=== PATIENT | female | born 2000 | race American Indian/Alaskan Native ===

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

== ENCOUNTER 2023-01-26 09:54 | Emergency (ER) | payer OTHER ==
--- NOTE | 2023-01-26 10:05 | ED Physician Documentation ---
PD HPI URI - Stated complaint Stated Complaint: PIRES/COUGH/SNEEZING - History obtained from History obtained from: Patient - History of Present Illness Timing - onset: How many weeks ago (07 31/2) Timing duration: Weeks (had URI symptoms last week and some symptoms improving. Now with sinus pressure, frontal headache, congestion and starting feverish the past 5 days (since Monday this week).) Timing details: Gradual onset, Still present Associated symptoms: Chills, Nasal congestion, Sinus pain. No: Sore throat, Swollen nodes, Dry cough, Chest pain Contributing factors: No: Sick contact, Immunocompromised Improves by: No: Medication (tried flonase and Dayquil. 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 : None HEENT: None Psych: None Musculoskeletal: None Derm: None - Past Surgical History Past Surgical History: No - Present Medications Home Medications: Ambulatory Orders Medication Instructions Recorded Confirmed Nitrofurantoin [Macrobid] 100 mg PO BID #10 cap 10/05/21 Amoxicillin 500 mg PO TID #21 cap 01/26/23 HYDROcod/ACETAM 5/325 [[place] 5/325] 1 ea PO Q6H PRN #10 tablet 01/26/23 dexAMETHasone [Decadron] 4 mg PO DAILY #5 tablet 01/26/23 - Allergies Allergies/Adverse Reactions: Allergies Allergy/AdvReac Type Severity Reaction Status Date / Time No Known Drug Allergies Allergy Verified 11/28/21 03:07 - Social History Does the pt smoke?: Yes Smoking Status: Current every day smoker Does the pt drink ETOH?: No Does the pt have substance abuse?: No - Immunizations Immunizations are current?: Yes PD ED PE NORMAL - Vitals Vital signs reviewed: Yes - General General: Alert and oriented X 3, No acute distress, Well developed/nourished - HEENT HEENT: Ears normal, Pharynx benign - Neck Neck: Supple, no meningeal sign, No adenopathy - Cardiac Cardiac: RRR, No murmur - Respiratory Respiratory: Clear bilaterally - Derm Derm: Normal color, Warm and dry Results - Vitals Vitals: Vital Signs - 24 hr 01/26/23 01/26/23 10:03 10:37 Temperature 37.3 C Heart Rate 60 62 Respiratory 18 16 Rate Blood Pressure 97/59 L 99/60 O2 Saturation 100 98 Oxygen O2 Source Room air PD Medical Decision Making - ED course Complexity details: considered differential (URI symptoms a week and now with increasing sphenoid and frontal sinus symptoms. Likely secondary sinus infection now. ), d/w patient Departure - Departure Disposition: Home, Self Care Clinical Impression: Upper respiratory infection Qualifiers: URI type: unspecified URI Qualified Code(s): J06.9 - Acute upper respiratory infection, unspecified Acute sinusitis Qualifiers: Sinusitis location: unspecified location Recurrence: non-recurrent Qualified Code(s): J01.90 - Acute sinusitis, unspecified Condition: Stable Record reviewed to determine appropriate education?: Yes Instructions: ED Sinusitis Abx Tx Follow-Up: [facility] [Provider Group] Prescriptions: Amoxicillin 500 mg PO TID #21 cap dexAMETHasone [Decadron] 4 mg PO DAILY #5 tablet HYDROcod/ACETAM 5/325 [[place] 5/325] 1 ea PO Q6H PRN #10 tablet PRN Reason: Pain Comments: It sounds like your head cold/viral illness may have precipitated a sinus infection more localized. We can treat this with amoxicillin antibiotic 3 times daily for a week as well as Decadron steroid for inflammation daily for 5 days. Continue with Tylenol or ibuprofen as needed for pains. Consider some saline nasal spray a few times daily to help unclog in sinus openings. It is okay to continue with the Flonase if she would like. Add hydrocodone every 6-8 hours if needed for worse pain. This would be particularly at night when it is hurting more and trouble sleeping. Would be intended short-term as the above treatments should be helping it over the next few days. Off work today and possibly tomorrow see how you are feeling. I sent your prescriptions to [facility] pharmacy in [place]. My narcotic instructions I am prescribing a short course of narcotic pain medication for you. These are potentially dangerous and addictive medications that should be used carefully. These medications may constipate you. Take an dmtf-jzl-oqmjrwn stool softener such as docusate twice daily with plenty of water while taking these m edications. If you go 24 hours without a bowel movement, take pkda-shv-mpyuswy MiraLAX, per package instructions. Do not drink or drive while taking these medications. If you received narcotic or sedating medications while in the emergency department do not drive for 24 hours. Store this medication in a safe, secure place and out of reach of children. It is a violation of federal law to give or sell this medication to another person or to use in a manner other than prescribed. The ED will not refill narcotic prescriptions, including prescriptions lost or stolen. You can dispose of unwanted medications at the [facility]'s office or at several pharmacies such as [facility]. Forms: Activity restrictions Discharge Date/Time: 01/26/23 10:38
[2023-01-26 10:42] VITALS: BP 99/60
== END 2023-01-26 10:38 | disposition home or self-care (01) ==
LOC: ED 09:54
DX: J06.9 Acute upper respiratory infection, unspecified (principal); J01.90 Acute sinusitis, unspecified; F17.200 Nicotine dependence, unspecified, uncomplicated
CPT/HCPCS: 99281; 99283

== ENCOUNTER 2023-02-06 09:00 | Emergency (ER) | payer OTHER ==
[2023-02-06 09:37] VITALS: BP 114/64
[2023-02-06 10:53] LABS: B. PARAPERTUSSIS- RESP PCR PAN NOT DETECTED; B. PERTUSSIS- RESP PCR PANEL NOT DETECTED; C. PNEUMONIAE- RESP PCR PANEL NOT DETECTED; CORONAVIRUS 229E-RESP PCR NOT DETECTED; CORONAVIRUS HKU1-RESP PCR NOT DETECTED; CORONAVIRUS NL63-RESP PCR NOT DETECTED; CORONAVIRUS OC43-RESP PCR NOT DETECTED; HUMAN METAPNEUMOVIRUS NOT DETECTED; INFLUENZA A- RESP PCR PANEL NOT DETECTED; INFLUENZA B - RESP PCR PANEL NOT DETECTED; M. PNEUMONIAE- RESP PCR PANEL NOT DETECTED; PARAINFLUENZA VIRUS 1 NOT DETECTED; PARAINFLUENZA VIRUS 2 NOT DETECTED; PARAINFLUENZA VIRUS 3 NOT DETECTED; PARAINFLUENZA VIRUS 4 NOT DETECTED; RHINOVIRUS/ENTEROVIRUS NOT DETECTED; RSV- RESP PCR PANEL NOT DETECTED; SARS-CoV-2 -RESP PCR PANEL NOT DETECTED
--- NOTE | 2023-02-06 11:03 | ED Physician Documentation ---
PD HPI HEENT - Stated complaint Stated Complaint: THROAT PX/COUGH/CONGESTION - Chief complaint Chief Complaint: Heent - History obtained from History obtained from: Patient - Additional information Additional information: The patient comes to the emergency department chief complaint of sore throat, nasal congestion, chills, sweats, and cough This started last night. She states she had something similar couple weeks ago and was told she had sinusitis and placed on antibiotics in the form of amoxicillin. The patient denies any fevers. She states she does not have any underlying medical problems and is otherwise healthy. No specific sick contacts. 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 She is wondering what the fastest way to get better would be. 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 : None HEENT: None Psych: None Musculoskeletal: None Derm: None - Past Surgical History Past Surgical History: No - Present Medications Home Medications: Ambulatory Orders Medication Instructions Recorded Confirmed Nitrofurantoin [Macrobid] 100 mg PO BID #10 cap 10/05/21 Amoxicillin 500 mg PO TID #21 cap 01/26/23 HYDROcod/ACETAM 5/325 [[place] 5/325] 1 ea PO Q6H PRN #10 tablet 01/26/23 dexAMETHasone [Decadron] 4 mg PO DAILY #5 tablet 01/26/23 - Allergies Allergies/Adverse Reactions: Allergies Allergy/AdvReac Type Severity Reaction Status Date / Time No Known Drug Allergies Allergy Verified 02/06/23 09:28 - Social History Does the pt smoke?: Yes Smoking Status: Current every day smoker Does the pt drink ETOH?: No Does the pt have substance abuse?: No - Immunizations Immunizations are current?: Yes PD ED PE NORMAL - Vitals Vital signs reviewed: Yes - General General: Alert and oriented X 3, No acute distress, Well developed/nourished - HEENT HEENT: Atraumatic, PERRL, EOMI, Moist mucous membranes, Pharynx benign, Other (N o sinus tenderness) - Neck Neck: Supple, no meningeal sign, No adenopathy - Cardiac Cardiac: RRR, No murmur - Respiratory Respiratory: No respiratory distress, Clear bilaterally - Abdomen Abdomen: Soft, Non tender, Non distended - Derm Derm: Normal color, Warm and dry, No rash - Extremities Extremities: No deformity - Neuro Neuro: Alert and oriented X 3, inspector repairer 2-12 intact, Normal speech, Other (Grossly intact) - Psych Psych: Normal mood, Normal affect Results - Vitals Vitals: Vital Signs - 24 hr 02/06/23 09:25 Temperature 36.3 C L Heart Rate 69 Respiratory 12 Rate Blood Pressure 114/64 O2 Saturation 100 Oxygen O2 Source Room air - Labs Labs: Laboratory Tests 02/06/23 09:45 Nasal Adenovirus (PCR) NOT DETECTED Nasal B. parapertussis DNA (PCR) NOT DETECTED Nasal Coronavir 229E PCR NOT DETECTED Nasal Coronavir HKU1 PCR NOT DETECTED Nasal Coronavir NL63 PCR NOT DETECTED Nasal Coronavir OC43 PCR NOT DETECTED Nasal Enterovir/Rhinovir PCR NOT DETECTED Nasal Influenza B PCR NOT DETECTED Nasal Influenza A PCR NOT DETECTED Nasal Parainfluen 1 PCR NOT DETECTED Nasal Parainfluen 2 PCR NOT DETECTED Nasal Parainfluen 3 PCR NOT DETECTED Nasal Parainfluen 4 PCR NOT DETECTED Nasal RSV (PCR) NOT DETECTED Nasal B.pertussis DNA PCR NOT DETECTED Nasal C.pneumoniae (PCR) NOT DETECTED Farzad Human Metapneumo PCR NOT DETECTED Nasal M.pneumoniae (PCR) NOT DETECTED Nasal SARS-CoV-2 (PCR) NOT DETECTED PD Medical Decision Making - ED course Complexity details: reviewed results, re-evaluated patient, considered differential, d/w patient ED course: The patient was worked up with a viral panel, which was unremarkable. I discussed with her that antibiotics are not appropriate for her illness at this time, as it has just started in the overrule whelming likelihood is that it is viral. I have given her 3 days off work and she will renew her work note if needed. We have discussed the usual indications for return. Departure - Departure Disposition: 01 Home, Self Care Clinical Impression: Upper respiratory infection Qualifiers: URI type: unspecified viral URI Qualified Code(s): J06.9 - Acute upper respiratory infection, unspecified Condition: Stable Instructions: ED URI Viral Forms: Activity restrictions Discharge Date/Time: 02/06/23 11:07
== END 2023-02-06 11:07 | disposition home or self-care (01) ==
LOC: ED 09:00
DX: J06.9 Acute upper respiratory infection, unspecified (principal); F17.200 Nicotine dependence, unspecified, uncomplicated; Z20.822 Contact with and (suspected) exposure to COVID-19
CPT/HCPCS: 87633; 99283

== ENCOUNTER 2023-02-08 14:25 | Emergency (ER) | payer OTHER ==
--- NOTE | 2023-02-08 14:42 | ED Physician Documentation ---
PD HPI HEENT - Stated complaint Stated Complaint: SORE THROAT, DISCOMFORT - Chief complaint Chief Complaint: Heent - History obtained from History obtained from: Patient - History of Present Illness Timing - onset: How many days ago (few) Timing - duration: Days (few) Timing - details: Gradual onset, Still present (has had increasing sore throat the past few days similar to symptoms of couple weeks ago. Had finished prior antibiotics a week ago, having felt better with it. Now recurring symptoms.) Location: Throat Associated symptoms: Swollen nodes. No: Fever, Congestion Similar symptoms before: Diagnosis (c/w sinus infection recent visit.) Recently seen: Emergency Dept Review of Systems Constitutional: denies: Fever, Chills Nose: reports: Sinus pressure / pain. 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 : None HEENT: None Psych: None Musculoskeletal: None Derm: None - Past Surgical History Past Surgical History: No - Present Medications Home Medications: Ambulatory Orders Medication Instructions Recorded Confirmed Escitalopram Oxalate [Lexapro] 20 mg PO DAILY 02/08/23 02/08/23 HYDROcod/ACETAM 5/325 [[place] 5/325] 1 ea PO Q6H PRN #12 tablet 02/08/23 cephALEXin [Keflex] 500 mg PO TID #18 cap 02/08/23 dexAMETHasone [Decadron] 4 mg PO DAILY #5 tablet 02/08/23 - Allergies Allergies/Adverse Reactions: Allergies Allergy/AdvReac Type Severity Reaction Status Date / Time No Known Drug Allergies Allergy Verified 02/08/23 14:33 - Social History Does the pt smoke?: Yes Smoking Status: Current every day smoker Does the pt drink ETOH?: No Does the pt have substance abuse?: No - Immunizations Immunizations are current?: Yes PD ED PE NORMAL - Vitals Vital signs reviewed: Yes - General General: Alert and oriented X 3, No acute distress, Well developed/nourished - HEENT HEENT: No: Pharynx benign (redness posteriorly with some swelling. anterior nodes felt. ) - Neck Neck: Supple, no meningeal sign - Cardiac Cardiac: RRR, No murmur - Respiratory Respiratory: Clear bilaterally Results - Vitals Vitals: Vital Signs - 24 hr 02/08/23 14:27 Temperature 37.0 C Heart Rate 74 Respiratory 18 Rate Blood Pressure 104/53 L O2 Saturation 99 Oxygen O2 Source Room air - Labs Labs: Laboratory Tests 02/08/23 15:08 Group A Strep Rapid Negative PD Medical Decision Making - ED course Complexity details: reviewed old records, reviewed results, considered differential, d/w patient ED course: Seen 2 weeks ago for sinus type symptoms with sore throat and had clinical suggestion of bacterial sinusitis. Treated with amoxicillin and Decadron and some pain medicine short-term. She states she felt quite improved over several days and state improved about a week. After finishing the medications, she had a return of symptoms for the last several days. Seen in the ER 2 days ago with a negative respiratory panel. She states the sore throat has worsened consid erably since that visit. Her throat does have redness and swelling with some anterior adenopathy. This sounds more pharyngitis at this time than sinus per se. She had had clinical improvement with amoxicillin but quick return. We can try treating with cephalexin as well as a short Decadron course and pain medicine as needed. I did order a rapid strep test to see on that. I think will be likely negative as far as group A strep but I would be suspicious of a culture component being positive with a good probability. As such I would treat empirically with the medications above especially in light of having improved fairly well with the first course of amoxicillin. Departure - Departure Disposition: 01 Home, Self Care Clinical Impression: Throat pain Pharyngitis Qualifiers: Pharyngitis/tonsillitis etiology: unspecified etiology Qualified Code(s): J02.9 - Acute pharyngitis, unspecified Condition: Stable Record reviewed to determine appropriate education?: Yes Prescriptions: dexAMETHasone [Decadron] 4 mg PO DAILY #5 tablet cephALEXin [Keflex] 500 mg PO TID #18 cap HYDROcod/ACETAM 5/325 [[place] 5/325] 1 ea PO Q6H PRN #12 tablet PRN Reason: Pain Comments: We can try a different antibiotic and see if this reduces and clears the infection/symptoms and stays away. I would also add like 2 weeks before, a short course of a steroid anti-inflammatory. Stay well-hydrated. Tylenol every 4-6 hours if needed for pain. Add hydrocodone if needed for worse pain. I sent your prescription to [facility] pharmacy. We did do a throat culture today and we will see what the results are in 2 or 3 days if we need to change to the antibiotic choice. Discharge Date/Time: 02/08/23 15:26
[2023-02-08 14:46] VITALS: BP 104/53
[2023-02-08 15:26] LABS: RAPID STREP SCREEN Negative (Negative)
== END 2023-02-08 15:26 | disposition home or self-care (01) ==
LOC: ED 14:25
DX: J02.9 Acute pharyngitis, unspecified (principal); F17.200 Nicotine dependence, unspecified, uncomplicated; Z79.899 Other long term (current) drug therapy
CPT/HCPCS: 87070; 87430; 99283

== ENCOUNTER 2023-04-11 08:04 | Emergency (ER) | payer OTHER ==
--- NOTE | 2023-04-11 08:13 | ED Physician Documentation ---
PD HPI URI - Stated complaint Stated Complaint: CONGESTION/COUGH/THROAT PX - History obtained from History obtained from: Patient - History of Present Illness Timing - onset: How many days ago (3) Timing duration: Days (3) Timing details: Abrupt onset, Still present Associated symptoms: Fever (3-4 days ago, none the past day or two.), Chills, Nasal congestion, Sore throat, Dry cough. No: Swollen nodes, Productive cough, Dyspnea Contributing factors: No: Sick contact Similar symptoms before: Diagnosis (had had URI syptoms every 2 months or so the past year. Has been on cetirizine and flonase the past month or so to reduce congestion.) Recently seen: Not recently seen ([facility] unable to see her for this acute illness. referred to ER.) Review of Systems Constitutional: reports: Fever, Chills Ears: reports: Loss of hearing (decreased). 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 HEENT: None Psych: None Musculoskeletal: None Derm: None - Past Surgical History Past Surgical History: No - Present Medications Home Medications: Ambulatory Orders Medication Instructions Recorded Confirmed Escitalopram Oxalate [Lexapro] 20 mg PO DAILY 02/08/23 02/08/23 HYDROcod/ACETAM 5/325 [[place] 5/325] 1 ea PO Q6H PRN #12 tablet 02/08/23 cephALEXin [Keflex] 500 mg PO TID #18 cap 02/08/23 dexAMETHasone [Decadron] 4 mg PO DAILY #5 tablet 02/08/23 - Allergies Allergies/Adverse Reactions: Allergies Allergy/AdvReac Type Severity Reaction Status Date / Time No Known Drug Allergies Allergy Verified 04/11/23 08:17 - Social History Does the pt smoke?: Yes Smoking Status: Current every day smoker Does the pt drink ETOH?: No Does the pt have substance abuse?: No - Immunizations Immunizations are current?: Yes PD ED PE NORMAL - Vitals Vital signs reviewed: Yes - General General: Alert and oriented X 3, No acute distress, Well developed/nourished - HEENT HEENT: Ears normal, Moist mucous membranes, Pharynx benign - Neck Neck: Supple, no meningeal sign, No adenopathy - Cardiac Cardiac: RRR - Respiratory Respiratory: Clear bilaterally - Derm Derm: Normal color, Warm and dry Results - Vitals Vitals: Vital Signs - 24 hr 04/11/23 08:20 Temperature 37 C Heart Rate 63 Respiratory 16 Rate Blood Pressure 114/74 O2 Saturation 100 Oxygen O2 Source Room air PD Medical Decision Making - ED course Complexity details: considered differential (URI symptoms for the past 3 days. More ill today generally with fatigue and cough. Had a negative COVID test yesterday at the clinic. Here for evaluation and work note.), d/w patient ED course: Ears appear normal. Throat does not appear like strep throat. Sounds like a viral URI. She had a negative COVID test yesterday. Low clinical suspicion and I do not see need for strep test. Departure - Departure Disposition: 01 Home, Self Care Clinical Impression: Upper respiratory infection Condition: Stable Record reviewed to determine appropriate education?: Yes Comments: It sounds likely to be a viral upper respiratory infection. Clinically does not appear like strep or ear infection. Off work today and tomorrow. Continue with Tylenol or ibuprofen for fever or chills. Continue with the DayQuil/NyQuil. And continue with your usual daily medicines. I would anticipate improvement in a couple more days as many of these illnesses last about 5 or 6 days. Forms: Activity restrictions
[2023-04-11 08:29] VITALS: BP 114/74; O2SAT 100
== END 2023-04-11 08:39 | disposition home or self-care (01) ==
LOC: ED 08:04
DX: J06.9 Acute upper respiratory infection, unspecified (principal); F17.200 Nicotine dependence, unspecified, uncomplicated
CPT/HCPCS: 99281; 99283

== ENCOUNTER 2024-02-06 18:26 | Emergency (ER) | payer OTHER ==
[2024-02-06 18:55] LABS: BASOPHILS % (AUTO) 0.2 %; EOSINOPHILS # (AUTO) 0.1 10^3/uL (0.0-0.7); EOSINOPHILS % (AUTO) 0.8 %; HCT - HEMATOCRIT 33.5 % (37.0-47.0); HGB - HEMOGLOBIN 11.6 g/dL (12.0-16.0); LYMPHOCYTES # (AUTO) 2.5 10^3/uL (1.5-3.5); LYMPHOCYTES % (AUTO) 29.4 %; MEAN CORPUSCULAR HEMOGLOBIN 30.6 pg (27.0-31.0); MEAN CORPUSCULAR HGB CONC 34.6 g/dL (32.0-36.0); MEAN CORPUSCULAR VOLUME 88.4 fL (81.0-99.0); MEAN PLATELET VOLUME 8.8 fL (7.9-10.8); MONOCYTES # (AUTO) 0.5 10^3/uL (0.0-1.0); MONOCYTES % (AUTO) 6.3 %; NEUTROPHILS # (AUTO) 5.3 10^3/uL (1.5-6.6); NEUTROPHILS % (AUTO) 62.9 %; PLT - PLATELET COUNT 254 10^3/uL (130-450); RED BLOOD COUNT 3.79 10^6/uL (4.20-5.40); RED CELL DISTRIBUTION WIDTH 13.3 % (12.0-15.0); WHITE BLOOD COUNT 8.4 x10^3/uL (4.8-10.8)
[2024-02-06 19:22] LABS: ALBUMIN 3.8 g/dL (3.2-5.5); ALBUMIN/GLOBULIN RATIO 1.6 (1.0-2.2); BILIRUBIN,TOTAL 0.3 mg/dL (0.2-1.0); CALCIUM 9.7 mg/dL (8.5-10.3); CREATININE 0.6 mg/dL (0.6-1.3); POTASSIUM 3.3 mmol/L (3.5-4.5); TOTAL PROTEIN 6.2 g/dL (6.4-8.9)
[2024-02-06 19:51] LABS: BILIRUBIN,URINE NEGATIVE (NEGATIVE); GLUCOSE, URINE (UA) NEGATIVE (NEGATIVE); KETONES,URINE (UA) NEGATIVE (NEGATIVE); LEUKOCYTE ESTERASE, URINE NEGATIVE (NEGATIVE); NITRITE,URINE NEGATIVE (NEGATIVE); OCCULT BLOOD,URINE NEGATIVE (NEGATIVE); PROTEIN,URINE NEGATIVE (NEGATIVE); UROBILINOGEN,URINE 0.2 (NORMAL) E.U./dL (NORMAL)
[2024-02-06 19:52] LABS: CLARITY,URINE CLEAR (CLEAR)
--- NOTE | 2024-02-06 20:03 | ED Physician Documentation ---
History of Present Illness - Stated complaint Stated Complaint: ABD PX/ - Chief complaint Chief Complaint: Abd Pain - History obtained from History obtained from: Patient - History of Present Illness Pain level max: 2 Pain level now: 2 - Additonal information Additional information: Patient is a 24-year-old female, 3 para 0. She thinks that she is a few weeks . Noted light pink spotting on the toilet paper today after wiping. Also has mild pelvic pain. She states that she was with twins in the past but had a miscarriage. She does not have an OB. She is not currently on vitamins. No fevers No chills. Nothing makes it better or worse. 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 : None HEENT: None Psych: None Musculoskeletal: None Derm: None - Past Surgical History Past Surgical History: No - Present Medications Home Medications: Ambulatory Orders Medication Instructions Recorded Confirmed Fluticasone [Flonase] 1 sprays [facility] DAILY 04/11/23 04/11/23 Multivitamin/Iron/Folic Acid 1 each PO DAILY 04/11/23 04/11/23 [Centrum Women Tablet] - Allergies Allergies/Adverse Reactions: Allergies Allergy/AdvReac Type Severity Reaction Status Date / Time ibuprofen [From Motrin] Allergy Emesis Verified 02/06/24 18:36 - Social History Does the pt smoke?: Yes Smoking Status: Former smoker Does the pt drink ETOH?: No Does the pt have substance abuse?: No - Immunizations Immunizations are current?: Yes PD ED PE NORMAL - Vitals Vital signs reviewed: Yes - General General: Alert and oriented X 3, No acute distress - HEENT HEENT: PERRL, Moist mucous membranes - Neck Neck: Supple, no meningeal sign - Cardiac Cardiac: RRR, Strong equal pulses - Respiratory Respiratory: No respiratory distress, Clear bilaterally - Abdomen Abdomen: Soft, Non distended, Other (Firm uterus, just under the umbilicus.) - Derm Derm: Warm and dry, No rash - Extremities Extremities: No edema - Neuro Neuro: Alert and oriented X 3 - Psych Psych: Normal mood, Normal affect Results - Vitals Vitals: Vital Signs - 24 hr 02/06/24 02/06/24 02/06/24 18:31 19:51 20:40 Temperature 36.8 C 36.2 C L Heart Rate 78 84 81 Respiratory 16 16 16 Rate Blood Pressure 113/60 96/81 H 101/63 O2 Saturation 96 99 98 Oxygen O2 Source Room air - Labs Labs: Laboratory Tests 02/06/24 02/06/24 02/06/24 18:50 18:50 19:40 WBC 8.4 RBC 3.79 L Hgb 11.6 L Hct 33.5 L MCV 88.4 MCH 30.6 MCHC 34.6 RDW 13.3 Plt Count 254 MPV 8.8 Neut # (Auto) 5.3 Lymph # (Auto) 2.5 [place] # (Auto) 0.5 Eos # (Auto) 0.1 Baso # (Auto) 0.0 Absolute Nucleated RBC 0.00 Nucleated RBC % 0.0 Sodium 137 Potassium 3.3 L Chloride 106 Carbon Dioxide 23 Anion Gap 8.0 BUN 11 Creatinine 0.6 Estimated GFR (MDRD) 125 Glucose 94 Calcium 9.7 Total Bilirubin 0.3 AST 14 ALT 13 Alkaline Phosphatase 49 Total Protein 6.2 L Albumin 3.8 Globulin 2.4 Albumin/Globulin Ratio 1.6 Lipase 13 Beta HCG, Quant 36946.5 Urine Color YELLOW Urine Clarity CLEAR Urine pH 6.0 Ur Specific [place] >=1.030 H Urine Protein NEGATIVE Urine Glucose (UA) NEGATIVE Urine Ketones NEGATIVE Urine Occult Blood NEGATIVE Urine Nitrite NEGATIVE Urine Bilirubin NEGATIVE Urine Urobilinogen 0.2 (NORMAL) Ur Leukocyte Esterase NEGATIVE Ur Microscopic Review NOT INDICATED Urine Culture Comments NOT INDICATED - Rads (name of study) OB US Relevant Findings:: Final report received, See rad report PD Medical Decision Making - ED course Complexity details: reviewed results, re-evaluated patient, considered differential, d/w patient ED course: Patient with vaginal spotting. She states that she is currently . She believed that she was only a few weeks , but ultrasound reveals that she has a approximately 17 weeks and two days . No evidence of ectopic . Abdomen soft, non-tender non-distended on serial exam. No significant laboratory abnormalities. Patient as well appearing on toxic. Not actively bleeding. Recommend that she start on a vitamin and follow up with OB for further care. Patient counseled regarding signs and symptoms for which I believe an urgent re-evaluation would be necessary. Patient with good understanding of and agreement to plan and is comfortable going home at this time. This document was made in part using voice recognition software. While efforts are made to proofread this document, sound alike and grammatical errors may occur. Departure - Departure Disposition: 01 Home, Self Care Clinical Impression: Qualifiers: Weeks of gestation: 17 weeks Qualified Code(s): Z3A.17 - 17 weeks gestation of Condition: Good Instructions: ED Care, ED Preg Established Normal Sxs Follow-Up: [facility] [Provider Group] Comments: As we discussed you are approximately 17 weeks and 2 days . You have a normal-appearing fetus. Your estimated due date is 07/14/2024. You should be 20 weeks on February 26, 2024. Please make sure to follow-up with OB for further care. I would recommend starting on a vitamin. Please return if you worsen. Forms: PCP List Discharge Date/Time: 02/06/24 20:40
[2024-02-06 20:43] VITALS: BP 101/63; O2SAT 98
--- NOTE | 2024-02-06 22:27 | Ultrasound Report ---
PROCEDURE: OB 14+ Weeks INDICATIONS: vaginal bleeding, + preg test OUTSIDE/PRIOR DATING DATA: Last menstrual period (LMP): Unknown. LMP-based estimated date of delivery (AMRITA): [Unknown First dating scan (date and location): 02/06/2024. Estimated date of delivery (AMRITA) from first dating scan: 07/14/2024. The below data below was generated using the ultrasound AMRITA of 07/14/2024 TECHNIQUE: Real-time scanning was performed of the fetus, with image documentation and biometric measurements. Endovaginal scanning: Not performed. COMPARISON: None. FINDINGS: General: A single living intrauterine gestation is present. Presentation: Variable Placenta: Placental position is posterior, without previa. Amniotic fluid index: Not evaluated heart rate: 160 beats per minute. Maternal cervical canal: Closed, not well visualized biometrics: Biparietal diameter: 3.7 cm Head circumference: 13.37 CM Abdominal circumference: 13.57 cm Femur length: 2.45 cm Estimated gestational age from initial scan: not applicable. Composite gestational age from present scan: 17 weeks, 2 days Estimated weight: 190 g Measurement variability for biometric dating: +/- 10 days from 12-20 weeks gestation, +/- 2 weeks fro m 20-30 weeks gestation, +/- 3 weeks for 30 weeks gestation or later. Limited evaluation of the anatomy demonstrates no gross abnormality. IMPRESSION: Single intrauterine gestation with estimated clinical age of 17 weeks, 2 days corresponding to AMRITA of 07/14/2024. Reviewed by: Nessa Pratt MD, PhD on 02/06/2024 10:26 PM PDT Approved by: Nessa Pratt MD, PhD on 02/06/2024 10:26 PM PDT Station ID: [id number]
== END 2024-02-06 20:40 | disposition home or self-care (01) ==
LOC: ED 18:26
DX: O26.892 Other specified pregnancy related conditions, second trimester (principal); R10.2 Pelvic and perineal pain; Z3A.17 17 weeks gestation of pregnancy
CPT/HCPCS: 36415; 80053; 81001; 81003; 83690; 84702; 85025; 87086; 99283; 99284

== ENCOUNTER 2024-02-16 13:07 | Outpatient (CLI) | payer OTHER ==
[2024-02-16 13:36] LABS: BASOPHILS % (AUTO) 0.2 %; EOSINOPHILS % (AUTO) 0.2 %; HGB - HEMOGLOBIN 11.1 g/dL (12.0-16.0); LYMPHOCYTES # (AUTO) 1.9 10^3/uL (1.5-3.5); LYMPHOCYTES % (AUTO) 20.8 %; MEAN CORPUSCULAR HEMOGLOBIN 30.7 pg (27.0-31.0); MEAN CORPUSCULAR HGB CONC 34.7 g/dL (32.0-36.0); MEAN CORPUSCULAR VOLUME 88.6 fL (81.0-99.0); MONOCYTES # (AUTO) 0.4 10^3/uL (0.0-1.0); MONOCYTES % (AUTO) 4.5 %; NEUTROPHILS # (AUTO) 6.7 10^3/uL (1.5-6.6); NEUTROPHILS % (AUTO) 74.1 %; PLT - PLATELET COUNT 237 10^3/uL (130-450); RED BLOOD COUNT 3.61 10^6/uL (4.20-5.40); RED CELL DISTRIBUTION WIDTH 13.4 % (12.0-15.0)
[2024-02-17 05:12] LABS: HBsAG SCREEN Negative (Negative); HIV SCREEN 4TH GENERATION Non Reactive (Non Reactive)
[2024-02-17 08:10] LABS: RPR Non Reactive (Non Reactive)
[2024-02-17 12:09] LABS: VARICELLA-ZOSTER AB IGG 359 index (Immune >165)
[2024-02-19 06:08] LABS: HCV AB Non Reactive (Non Reactive)
== END 2024-02-16 13:08 | disposition home or self-care (01) ==
LOC: LAB 13:07
PROVIDERS: ATTEND Obstetrics & Gynecology
DX: Z34.90 Encounter for supervision of normal pregnancy, unspecified, unspecified trimester (principal); Z36.89 Encounter for other specified antenatal screening
CPT/HCPCS: 36415; 85025; 86592; 86762; 86787; 86803; 86850; 86900; 86901; 87340; 87389

== ENCOUNTER 2024-02-23 15:49 | Outpatient (CLI) | payer OTHER ==
[2024-02-23 18:46] LABS: CHLAMYDIA TRACHOMATIS DNA NEGATIVE (NEGATIVE); NEISSERIA GONORRHOEAE DNA NEGATIVE (NEGATIVE); TRICHOMONAS VAGINALIS DNA NEGATIVE (NEGATIVE)
== END 2024-02-23 15:50 | disposition home or self-care (01) ==
LOC: LAB.WC 15:49
PROVIDERS: ATTEND Obstetrics & Gynecology
DX: Z11.3 Encounter for screening for infections with a predominantly sexual mode of transmission (principal)
CPT/HCPCS: 87491; 87591; 87661

== ENCOUNTER 2024-02-27 13:54 | Outpatient (CLI) | payer OTHER | END 2024-02-27 13:55 | disposition home or self-care (01) | LOC: LAB 13:54 | PROVIDERS: ATTEND Obstetrics & Gynecology | DX: Z36.89 Encounter for other specified antenatal screening (principal) | CPT/HCPCS: 36415; 82105 ==

== ENCOUNTER 2024-03-11 18:30 | Outpatient (CLI) | payer OTHER ==
--- NOTE | 2024-03-13 12:12 | Ultrasound Report ---
PROCEDURE: OB Anatomy Scan INDICATIONS: SUPERVISION OF OUTSIDE/PRIOR DATING DATA: Last menstrual period (LMP): Unknown. LMP-based estimated date of delivery (AMRITA): Unknown. First dating scan (date and location): 02/06/2024. Estimated date of delivery (AMRITA) from first dating scan: 07/14/2024. The below data below was generated using the working AMRITA of 07/14/2024 TECHNIQUE: Ultrasound of the gravid uterus was performed and recorded. COMPARISON: 02/06/2024 FINDINGS: General: A single live intrauterine gestation is present. Presentation: Breech Placenta: Placental position is posterior without previa. Amniotic fluid index: 14.1 cm, 44th percentile for gestational age. heart rate: 137 beats per minute. Maternal cervical canal: 3.1 cm long; normal length is 2.5 cm or more. biometrics: Biparietal diameter: 4.9 cm, 20 week 6 day, 7.2 percentile Head circumference: 19.1 cm, 21 week 3 day, 12 percentile Abdominal circumference: 17.6 cm, 22 week 4 day, 55 percentile Femur length: 3.7 cm, 21 week 6 day, 30 percentile Estimated gestational age by working dates: 22 week 1 day Composite gestational age by current ultrasound: 21 week 3 day Estimated weight and percentile: 475 g, 40.7 percentile Measurement variability in biometric dating: +/- 10 days from 12-20 weeks gestation, +/- 2 weeks from 20-30 weeks gestation, +/- 3 weeks at 30 weeks gestation or more. Anatomic survey: Neuro: Ventricles are non-dilated at less than 10 mm. Cisterna magna is normal at 3-11 mm. Cerebel lum is normal in size and morphology. Nuchal skin fold: Normal at less than 6 mm between 14-20 weeks gestational age. Face: Not well seen Spine: No evidence for spina bifida. Heart: Not well seen Diaphragm: Diaphragm is intact. Stomach: Left-sided stomach is present. Kidneys: No hydronephrosis. Normal is less than 5 mm in 2nd trimester, less than 7 mm in 3rd trimester. Cord: 3-vessel cord has orthotopic insertion. Bladder: Normal in size. Extremities: All 4 extremities identified. Other: Not applicable. IMPRESSION: Single live intrauterine consistent with 21 week 3 day gestation by current ultrasound Facial profile and cardiac views are not well seen. Remainder of the anatomy is within normal l imits Reviewed by: Satish Downey MD on 03/13/2024 11:11 AM JING Approved by: Satish Downey MD on 03/13/2024 11:11 AM JING Station ID: [id number]
== END 2024-03-11 18:31 | disposition home or self-care (01) ==
LOC: DI 18:30
PROVIDERS: ATTEND Obstetrics & Gynecology
DX: Z34.92 Encounter for supervision of normal pregnancy, unspecified, second trimester (principal)

== ENCOUNTER 2024-03-25 06:54 | Outpatient (CLI) | payer OTHER ==
--- NOTE | 2024-03-25 11:09 | Ultrasound Report ---
PROCEDURE: OB Follow up INDICATIONS: SUPERVISION OF OUTSIDE/PRIOR DATING DATA: Last menstrual period (LMP): Unsure. LMP-based estimated date of delivery (AMRITA): Not applicable. First dating scan (date and location): 02/06/2024. Estimated date of delivery (AMRITA) from first dating scan: 07/14/2024. The below data below was generated using the ultrasound AMRITA of 07/14/2024 TECHNIQUE: Real-time scanning was performed of the fetus, with image documentation. Endovaginal scanning: Not performed. COMPARISON: 03/11/2024, 02/06/2024 FINDINGS: General: A single living intrauterine gestation is present. Presentation: Breech Placenta: Placental position is posterior, without previa. Amniotic fluid index: 1820 cm, 83rd percentile for gestational age. heart rate: 150 beats per minute. Maternal cervical canal: 3.9 cm long; normal length is 2.5 cm or more. anatomy: The 4-channel heart, outflow tracts, nose/lips, face and profile appear normal on toda y's examination. IMPRESSION: Single living intrauterine at 24 weeks 1 day, AMRITA of 07/14/2024. 4-channel heart, facial profile, outflow tracts, nose/lips and face appear normal, completing the fet al anatomy survey. Reviewed by: Jason Riley MD on 03/25/2024 11:07 AM PDT Approved by: Jason Riley MD on 03/25/2024 11:07 AM PDT Station ID: [id number]
== END 2024-03-25 06:55 | disposition home or self-care (01) ==
LOC: DI 06:54
PROVIDERS: ATTEND Obstetrics & Gynecology
DX: Z34.92 Encounter for supervision of normal pregnancy, unspecified, second trimester (principal)

== ENCOUNTER 2024-04-08 05:55 | Emergency (ER) | payer OTHER ==
[2024-04-08 06:13] VITALS: BP 108/51; O2SAT 99
[2024-04-08 06:34] LABS: RAPID STREP SCREEN Negative (Negative)
--- NOTE | 2024-04-08 06:48 | ED Physician Documentation ---
PD HPI HEENT - Stated complaint Stated Complaint: SORE THROAT - Chief complaint Chief Complaint: Heent - History obtained from History obtained from: Patient - Additional information Additional information: The patient comes to the emergency department chief complaint of sore throat that started yesterday. She states that she has been congested for her entire and this is not any different than usual. She states she had a temperature up to 100. She denies any difficulty breathing or swallowing. No other complaints at this time. PD PAST MEDICAL HISTORY - Past Medical History Past Medical History: Yes Cardiovascular: None Respiratory: None Neuro: None Endocrine/Autoimmune: None GI: None DANCE MASTER: None : None HEENT: None Psych: None Musculoskeletal: None Derm: None - Past Surgical History Past Surgical History: No - Present Medications Home Medications: Ambulatory Orders Medication Instructions Recorded Confirmed Fluticasone [Flonase] 1 sprays MUNIR DAILY 04/11/23 04/08/24 Vit No.130/Iron/Folic 1 tab PO DAILY 04/08/24 04/08/24 [ Tablet] - Allergies Allergies/Adverse Reactions: Allergies Allergy/AdvReac Type Severity Reaction Status Date / Time ibuprofen [From Motrin] Allergy Emesis Verified 04/08/24 06:10 - Social History Does the pt smoke?: Yes Smoking Status: Current every day smoker Does the pt drink ETOH?: No Does the pt have substance abuse?: No - Immunizations Immunizations are current?: Yes - POLST Patient has POLST: No PD ED PE NORMAL - Vitals Vital signs reviewed: Yes - General General: Alert and oriented X 3, No acute distress, Well developed/nourished - HEENT HEENT: Atraumatic, PERRL, EOMI, Moist mucous membranes, Pharynx benign - Neck Neck: Supple, no meningeal sign, No adenopathy - Cardiac Cardiac: RRR, No murmur - Respiratory Respiratory: No respiratory distress, Clear bilaterally - Abdomen Abdomen: Other (gravid) - Derm Derm: Warm and dry - Extremities Extremities: No deformity - Neuro Neuro: Alert and oriented X 3 - Psych Psych: Normal mood, Normal affect Results - Vitals Vitals: Vital Signs - 24 hr 04/08/24 06:05 Temperature 37.1 C Heart Rate 81 Respiratory 16 Rate Blood Pressure 108/51 L O2 Saturation 99 Oxygen O2 Source Room air - Labs Labs: Laboratory Tests 04/08/24 06:15 Group A Strep Rapid Negative PD Medical Decision Making - ED course Complexity details: reviewed results, re-evaluated patient, considered differential, d/w patient ED course: The patient strep test was negative. I discussed with her that she may take Tylenol as needed for discomfort, but should avoid ibuprofen. No antibiotics are indicated at this time. The patient is stable for discharge home. We have discussed the usual indications for follow-up and return. Departure - Departure Disposition: 01 Home, Self Care Clinical Impression: Acute viral pharyngitis Condition: Stable Instructions: ED Pharyngitis Viral Comments: Your strep test is negative. There is no evidence of a bacterial infection and therefore, no indication for antibiotics at this time. You may take Tylenol which is safe to take during .
== END 2024-04-08 07:06 | disposition home or self-care (01) ==
LOC: ED 05:55
DX: O99.519 Diseases of the respiratory system complicating pregnancy, unspecified trimester (principal); J02.8 Acute pharyngitis due to other specified organisms; O99.330 Smoking (tobacco) complicating pregnancy, unspecified trimester
CPT/HCPCS: 87070; 87430; 99283

== ENCOUNTER 2024-04-09 11:04 | Emergency (ER) | payer OTHER ==
[2024-04-09 11:17] VITALS: BP 113/62; O2SAT 99
--- NOTE | 2024-04-09 11:25 | ED Physician Documentation ---
History of Present Illness - Stated complaint Stated Complaint: RT SIDE UPPER ABD PX - Chief complaint Chief Complaint: General - History obtained from History obtained from: Patient - Additonal information Additional information: She has had progressive rib pain mostly on the right for the last 3 weeks. She is 26 weeks , G2 but did not progress after about 10 weeks with her prior so did not have the symptoms with prior . Is worse if she takes a deep breath but is not short of breath per se. No change with eating. It hurts to change positions and move. There was no injury. 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 : None HEENT: None Psych: None Musculoskeletal: None Derm: None - Past Surgical History Past Surgical History: No - Present Medications Home Medications: Ambulatory Orders Medication Instructions Recorded Confirmed Fluticasone [Flonase] 1 sprays MUNIR DAILY 04/11/23 04/08/24 Vit No.130/Iron/Folic 1 tab PO DAILY 04/08/24 04/08/24 [ Tablet] - Allergies Allergies/Adverse Reactions: Allergies Allergy/AdvReac Type Severity Reaction Status Date / Time ibuprofen [From Motrin] Allergy Emesis Verified 04/09/24 11:10 - Social History Does the pt smoke?: Yes Smoking Status: Current every day smoker Does the pt drink ETOH?: No Does the pt have substance abuse?: No - Immunizations Immunizations are current?: Yes - POLST Patient has POLST: No PD ED PE NORMAL - Vitals Vital signs reviewed: Yes - General General: Alert and oriented X 3, No acute distress - Cardiac Cardiac: RRR, No murmur - Respiratory Respiratory: No respiratory distress, Clear bilaterally, Other (She is tender over the right lower ribs. Not in the right upper quadrant of the abdomen. Lung sounds are clear and nonlabored.) - Abdomen Abdomen: Non tender - Back Back: No spinal TTP - Extremities Extremities: No edema, No calf tenderness / cord - Neuro Neuro: Alert and oriented X 3, Normal speech Results - Vitals Vitals: Vital Signs - 24 hr 04/09/24 11:10 Temperature 36.9 C Heart Rate 100 Respiratory 17 Rate Blood Pressure 113/62 O2 Saturation 99 Oxygen O2 Source Room air PD Medical Decision Making - ED course ED course: I suspect this is skeletal pain from the uterus growing. She is not short of breath so would not suspect PE. It does not change with eating and is fairly constant and longstanding to be a biliary issue. Tylenol was recommended but she says she cannot take Tylenol because she always throws it up. Departure - Departure Disposition: Home, Self Care Clinical Impression: Rib pain on right side Condition: Good Record reviewed to determine appropriate education?: Yes Follow-Up: [facility] [Provider Group] Comments: As discussed, I think your pain is from the enlarging uterus squishing your ribs. Call your doctor to arrange a follow-up appointment, make the next available appointment. In the interim, return anytime if worse or if new symptoms develop. Forms: PCP List, Activity restrictions
== END 2024-04-09 11:46 | disposition home or self-care (01) ==
LOC: ED 11:04
DX: O99.891 Other specified diseases and conditions complicating pregnancy (principal); R07.81 Pleurodynia; O99.332 Smoking (tobacco) complicating pregnancy, second trimester; Z3A.26 26 weeks gestation of pregnancy
CPT/HCPCS: 99281; 99282

== ENCOUNTER 2024-04-11 11:26 | Emergency (ER) | payer OTHER ==
[2024-04-11 12:39] LABS: B. PARAPERTUSSIS- RESP PCR PAN NOT DETECTED; B. PERTUSSIS- RESP PCR PANEL NOT DETECTED; C. PNEUMONIAE- RESP PCR PANEL NOT DETECTED; CORONAVIRUS 229E-RESP PCR NOT DETECTED; CORONAVIRUS HKU1-RESP PCR NOT DETECTED; CORONAVIRUS NL63-RESP PCR NOT DETECTED; CORONAVIRUS OC43-RESP PCR NOT DETECTED; HUMAN METAPNEUMOVIRUS NOT DETECTED; INFLUENZA A- RESP PCR PANEL NOT DETECTED; INFLUENZA B - RESP PCR PANEL NOT DETECTED; M. PNEUMONIAE- RESP PCR PANEL NOT DETECTED; PARAINFLUENZA VIRUS 1 NOT DETECTED; PARAINFLUENZA VIRUS 2 NOT DETECTED; PARAINFLUENZA VIRUS 3 NOT DETECTED; PARAINFLUENZA VIRUS 4 NOT DETECTED; RHINOVIRUS/ENTEROVIRUS DETECTED; RSV- RESP PCR PANEL NOT DETECTED; SARS-CoV-2 -RESP PCR PANEL NOT DETECTED
--- NOTE | 2024-04-11 12:55 | ED Physician Documentation ---
History of Present Illness - Stated complaint Stated Complaint: FEVER, COUGH, SORE THROAT - Chief complaint Chief Complaint: General - History obtained from History obtained from: Patient - Additonal information Additional information: Patient is a 24-year-old female presenting to the emergency department with viral URI symptoms. Patient is approximately 26 weeks . She has had a normal anatomy test. She has not had any complications during her . She notes baby is still active and moving. She has been eating and drinking well and has been compliant with her vitamins. Patient is G2, P0. She has no chest pain no shortness of breath no lower leg swelling. She has had a fever of 100.1 at home but no other fevers. She notes mild cough with congestion and nasal dripping. She also has sore throat and bilateral ear pain. No recent sick contacts. 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 : None HEENT: None Psych: None Musculoskeletal: None Derm: None - Past Surgical History Past Surgical History: No - Present Medications Home Medications: Ambulatory Orders Medication Instructions Recorded Confirmed Fluticasone [Flonase] 1 sprays MUNIR DAILY 04/11/23 04/08/24 Vit No.130/Iron/Folic 1 tab PO DAILY 04/08/24 04/08/24 [ Tablet] - Allergies Allergies/Adverse Reactions: Allergies Allergy/AdvReac Type Severity Reaction Status Date / Time ibuprofen [From Motrin] Allergy Emesis Verified 04/11/24 11:33 - Social History Does the pt smoke?: No Smoking Status: Never smoker Does the pt drink ETOH?: No Does the pt have substance abuse?: No - Immunizations Immunizations are current?: Yes - POLST Patient has POLST: No PD ED PE NORMAL - Vitals Vital signs reviewed: Yes - General General: Alert and oriented X 3 - HEENT HEENT: Atraumatic, Other (Moist mucous membranes oropharynx is clear bilateral TMs are clear no signs of erythema. No significant adenopathy on palpation.) - Neck Neck: Supple, no meningeal sign, No JVD - Cardiac Cardiac: RRR, No murmur, No gallop, No rub - Respiratory Respiratory: No respiratory distress, Clear bilaterally - Abdomen Abdomen: Normal bowel sounds, Soft, Non tender, Non distended - Derm Derm: Normal color, No rash - Neuro Neuro: Alert and oriented X 3 Eye Opening: Spontaneous Motor: Obeys Commands Verbal: Oriented GCS Score: 15 Results - Vitals Vitals: Vital Signs - 24 hr 04/11/24 04/11/24 11:33 13:40 Temperature 36.8 C 36.8 C Heart Rate 98 90 Respiratory 18 16 Rate Blood Pressure 98/54 L 100/60 O2 Saturation 98 100 Oxygen O2 Source Room air - Labs Labs: Laboratory Tests 04/11/24 11:43 Nasal Adenovirus (PCR) NOT DETECTED Nasal B. parapertussis DNA (PCR) NOT DETECTED Nasal Coronavir 229E PCR NOT DETECTED Nasal Coronavir HKU1 PCR NOT DETECTED Nasal Coronavir NL63 PCR NOT DETECTED Nasal Coronavir OC43 PCR NOT DETECTED Nasal Enterovir/Rhinovir PCR DETECTED A Nasal Influenza B PCR NOT DETECTED Nasal Influenza A PCR NOT DETECTED Nasal Parainfluen 1 PCR NOT DETECTED Nasal Parainfluen 2 PCR NOT DETECTED Nasal Parainfluen 3 PCR NOT DETECTED Nasal Parainfluen 4 PCR NOT DETECTED Nasal RSV (PCR) NOT DETECTED Nasal B.pertussis DNA PCR NOT DETECTED Nasal C.pneumoniae (PCR) NOT DETECTED Munir Human Metapneumo PCR NOT DETECTED Nasal M.pneumoniae (PCR) NOT DETECTED Nasal SARS-CoV-2 (PCR) NOT DETECTED PD Medical Decision Making - ED course ED course: Patient is a 24-year-old female presenting to the emergency department with cough congestion sore throat. Patient is about 26 weeks and had an ultrasound on 826 that shows normal anatomy survey. Patient is G2, P0. She follows with ORIENTAL RUG REPAIRER here at the clinic. She notes she is not on any medications other than her home vitamins. Patient denies any chest pain no shortness of breath she had a slight temperature of 100.1 at home. She denies any other symptoms. She has not had any complications in this . She has been eating and drinking well no nausea or vomiting. Vitals on arrival patient is nontachycardic afebrile she did not take anything for his symptoms prior to coming in. Blood pressure slightly soft at 98/54 however on repeat vitals Improved to 100/60. heart tones stable at 154 This is within normal range. Respiratory panel shows positive for rhinovirus. Patient will follow-up with ORIENTAL RUG REPAIRER in the outpatient setting. Discussed with patient she can try saline flushes and humidified air in the outpatient setting and take tylenol as needed for her symptoms. Patient instructed to follow-up with ORIENTAL RUG REPAIRER at next available appointment. Patient feels safe to go home. Patient agreeable with this plan. Departure - Departure Disposition: 01 Home, Self Care Clinical Impression: Rhinovirus, Second trimester , Acute viral pharyngitis, Condition: Good Instructions: ED Pharyngitis Viral, ED Viral Syndrome Comments: You were seen here in the emergency department for your viral URI symptoms. Your workup here in the emergency department showed normal heart tones normal stable for vital signs and no acute findings. You did test positive for rhinovirus here in the emergency department. Given you are there is a low benefit from starting medications due to risk in . I recommend you doing [id number] saline sprays and humidified air at home to help with your symptoms. Drink lots of fluids and watch for any significantly high fevers over 101, nausea vomiting unable to eat and drink, severe fatigue abdominal pain chest pain or shortness of breath. These are findings you should return to the emergency department. Follow-up with ORIENTAL RUG REPAIRER at their next available appointment to inform them you are here in the emergency department. And continue taking home vitamins as instructed. Forms: PCP List Discharge Date/Time: 04/11/24 13:40
[2024-04-11 13:44] VITALS: BP 100/60; O2SAT 100
== END 2024-04-11 13:40 | disposition home or self-care (01) ==
LOC: ED 11:26
DX: O99.512 Diseases of the respiratory system complicating pregnancy, second trimester (principal); J02.8 Acute pharyngitis due to other specified organisms; O98.512 Other viral diseases complicating pregnancy, second trimester; B97.89 Other viral agents as the cause of diseases classified elsewhere; Z3A.26 26 weeks gestation of pregnancy
CPT/HCPCS: 87633; 99283

== ENCOUNTER 2024-04-18 12:40 | Emergency (ER) | payer OTHER ==
--- NOTE | 2024-04-18 12:53 | ED Physician Documentation ---
History of Present Illness - Stated complaint Stated Complaint: R RIB PAIN - Additonal information Additional information: Patient is a 24-year-old female G2, P0 who is well-known to the emergency department she has been seen here multiple times most recently 1 week ago where she was diagnosed with rhinovirus. Prior to that she was seen on the for right rib pain. She presents here today with similar complaints of persistent right rib pain. She notes her symptoms have not improved she is not taking anything for symptoms as she throws up Tylenol. She denies any vaginal bleeding no vaginal discharge. No fevers or rash to the area. PD PAST MEDICAL HISTORY - Past Medical History Cardiovascular: None Respiratory: None Neuro: None Endocrine/Autoimmune: None GI: None DETAILER: None : None HEENT: None Psych: None Musculoskeletal: None Derm: None - Past Surgical History Past Surgical History: No - Present Medications Home Medications: Ambulatory Orders Medication Instructions Recorded Confirmed Fluticasone [Flonase] 1 sprays MUNIR DAILY 04/11/23 04/18/24 Vit No.130/Iron/Folic 1 tab PO DAILY 04/08/24 04/18/24 [ Tablet] Lidocaine Patch 5% [Lidoderm Patch] 1 patch TOP DAILY PRN #10 patch 04/18/24 - Allergies Allergies/Adverse Reactions: Allergies Allergy/AdvReac Type Severity Reaction Status Date / Time ibuprofen [From Motrin] Allergy Emesis Verified 04/18/24 12:54 - Social History Does the pt smoke?: No Smoking Status: Never smoker Does the pt drink ETOH?: No Does the pt have substance abuse?: No - Immunizations Immunizations are current?: Yes - POLST Patient has POLST: No PD ED PE NORMAL - Vitals Vital signs reviewed: Yes - General General: Alert and oriented X 3 - HEENT HEENT: Atraumatic - Neck Neck: Supple, no meningeal sign - Cardiac Cardiac: RRR, No murmur, No gallop, No rub - Respiratory Respiratory: No respiratory distress, Clear bilaterally - Abdomen Abdomen: Normal bowel sounds - Derm Derm: Normal color, Warm and dry, No rash, Other (No bruising or swelling) - Neuro Neuro: Alert and oriented X 3 Eye Opening: Spontaneous Motor: Obeys Commands Verbal: Oriented GCS Score: 15 Results - Vitals Vitals: Vital Signs - 24 hr 04/18/24 12:54 Temperature 36.9 C Heart Rate 71 Respiratory 15 Rate Blood Pressure 112/60 O2 Saturation 98 Oxygen O2 Source Room air - Labs Labs: Laboratory Tests 04/18/24 04/18/24 14:08 14:08 WBC 8.5 RBC 3.66 L Hgb 11.1 L Hct 33.9 L MCV 92.6 MCH 30.3 MCHC 32.7 RDW 12.5 Plt Count 264 MPV 8.8 Neut # (Auto) 6.2 Lymph # (Auto) 1.6 Pitkin # (Auto) 0.6 Eos # (Auto) 0.0 Baso # (Auto) 0.0 Absolute Nucleated RBC 0.00 Nucleated RBC % 0.0 Sodium 135 Potassium 3.7 Chloride 105 Carbon Dioxide 25 Anion Gap 5.0 L BUN 9 Creatinine 0.5 L Estimated GFR (MDRD) 154 Glucose 90 Calcium 9.0 Total Bilirubin 0.2 AST 15 ALT 16 Alkaline Phosphatase 67 Troponin I High Sens < 2.3 L Total Protein 6.3 L Albumin 3.5 Globulin 2.8 Albumin/Globulin Ratio 1.3 Lipase 18 PD Medical Decision Making - ED course Complexity details: reviewed old records, reviewed results, re-evaluated patient ED course: Patient is a 24-year-old female presenting to the emergency department with right rib pain symptoms have been going on for approximately 3 weeks now. She has been here in the emergency department 2 other times for the symptoms. She has tried Tylenol but no relief she notes symptoms have been progressively worsening. She notes pain worsens when taking a deep breath but she denies any significant shortness of breath with that. No other chest pain. No pain worsening after eating or drinking. Discussed with patient basic labs were obtained showing no elevation in LFTs her lipase is within normal range troponin within normal range and EKG shows no acute findings. Patient additionally has no significant leukocytosis no significant electrolyte abnormality that could explain her symptoms. Her symptoms do not seem to worsen after eating and drinking low suspicion for gallbladder problem her pain is reproducible over her right lower lip ribs. But no significant swelling and clear breath sounds on auscultation. Discussed with patient would like to obtain chest x-ray to ensure no signs of pneumonia given her recent rhinovirus however she declines due to possible radiation risk to being . Discussed with patient evaluation with possible pulmonary embolism however lower suspicion given no tachycardia no signs of hypoxia. She additionally would not like to go through with any CT scans due to risk of radiation to her . Patient denies any lower abdominal pain no vaginal bleeding no discharge. No fevers chills nausea or vomiting associated with her symptoms. I did discuss with on-call FRAUD INVESTIGATOR Dr. Bauer who follows with her on Monday. He is in agreement trying lidocaine patches for short period of time and having her return with any worsening symptoms is safe for her symptoms at this time. He reviewed her labs and vitals. Patient will follow-up with him on Monday and will return with any new or worsening symptoms. Patient is in agreement with this plan. Departure - Departure Prescriptions: Lidocaine Patch 5% [Lidoderm Patch] 1 patch TOP DAILY PRN #10 patch PRN Reason: pain
[2024-04-18 13:07] VITALS: O2SAT 98
[2024-04-18 14:15] LABS: BASOPHILS % (AUTO) 0.2 %; EOSINOPHILS % (AUTO) 0.5 %; HCT - HEMATOCRIT 33.9 % (37.0-47.0); HGB - HEMOGLOBIN 11.1 g/dL (12.0-16.0); LYMPHOCYTES # (AUTO) 1.6 10^3/uL (1.5-3.5); LYMPHOCYTES % (AUTO) 18.8 %; MEAN CORPUSCULAR HEMOGLOBIN 30.3 pg (27.0-31.0); MEAN CORPUSCULAR HGB CONC 32.7 g/dL (32.0-36.0); MEAN CORPUSCULAR VOLUME 92.6 fL (81.0-99.0); MEAN PLATELET VOLUME 8.8 fL (7.9-10.8); MONOCYTES # (AUTO) 0.6 10^3/uL (0.0-1.0); MONOCYTES % (AUTO) 6.7 %; NEUTROPHILS # (AUTO) 6.2 10^3/uL (1.5-6.6); NEUTROPHILS % (AUTO) 73.1 %; PLT - PLATELET COUNT 264 10^3/uL (130-450); RED BLOOD COUNT 3.66 10^6/uL (4.20-5.40); RED CELL DISTRIBUTION WIDTH 12.5 % (12.0-15.0); WHITE BLOOD COUNT 8.5 x10^3/uL (4.8-10.8)
[2024-04-18 14:27] LABS: ALBUMIN 3.5 g/dL (3.2-5.5); ALBUMIN/GLOBULIN RATIO 1.3 (1.0-2.2); ALKALINE PHOSPHATASE 67 IU/L (42-121); ALT ALANINE AMINOTRANSFERASE 16 IU/L (10-60); AST ASPARTATE AMINOTRANSFERASE 15 IU/L (10-42); BILIRUBIN,TOTAL 0.2 mg/dL (0.2-1.0); BUN - BLOOD UREA NITROGEN 9 mg/dL (6-20); CARBON DIOXIDE - CO2 25 mmol/L (21-32); CHLORIDE 105 mmol/L (101-111); CREATININE 0.5 mg/dL (0.6-1.3); GFR - MDRD 154 (>89); GLUCOSE 90 mg/dL (74-104); LIPASE 18 U/L (11-82); POTASSIUM 3.7 mmol/L (3.5-4.5); SODIUM 135 mmol/L (135-145); TOTAL PROTEIN 6.3 g/dL (6.4-8.9)
[2024-04-18 14:34] LABS: TROPONIN I HIGH SENSITIVITY < 2.3 ng/L (2.3-14.8)
[2024-04-18 16:00] VITALS: BP 100/55
== END 2024-04-18 15:42 | disposition home or self-care (01) ==
LOC: ED 12:40
DX: B34.8 Other viral infections of unspecified site (principal); Z79.899 Other long term (current) drug therapy
CPT/HCPCS: 36415; 80053; 83690; 84484; 85025; 93005; 99283

== ENCOUNTER 2024-04-18 15:44 | Outpatient (CLI) | payer OTHER ==
[2024-04-18 17:08] LABS: HCT - HEMATOCRIT 33.2 % (37.0-47.0); HGB - HEMOGLOBIN 11.2 g/dL (12.0-16.0); MEAN CORPUSCULAR HEMOGLOBIN 31.3 pg (27.0-31.0); MEAN CORPUSCULAR HGB CONC 33.7 g/dL (32.0-36.0); MEAN CORPUSCULAR VOLUME 92.7 fL (81.0-99.0); MEAN PLATELET VOLUME 8.9 fL (7.9-10.8); RED BLOOD COUNT 3.58 10^6/uL (4.20-5.40); RED CELL DISTRIBUTION WIDTH 12.6 % (12.0-15.0)
[2024-04-19 07:12] LABS: RPR Non Reactive (Non Reactive)
== END 2024-04-18 15:45 | disposition home or self-care (01) ==
LOC: LAB 15:44
PROVIDERS: ATTEND Obstetrics & Gynecology
DX: Z34.90 Encounter for supervision of normal pregnancy, unspecified, unspecified trimester (principal)
CPT/HCPCS: 36415; 82950; 85027; 86592; 86850

== ENCOUNTER 2024-07-21 07:20 | Inpatient (IN) ==
[2024-07-21] MEDS ORDERED: SODIUM CHLORIDE FLUSH 0.9% 10 ML SYRINGE IVP PRN (08:45)
[2024-07-21] MEDS ORDERED: TERBUTALINE 1 MG/ML VIAL SUBQ PRN (08:45)
[2024-07-21] MEDS ORDERED: OXYTOCIN 10 UNIT/ML VIAL IM PRN (08:45)
[2024-07-21] MEDS ORDERED: hydrALAZINE INJ 20 MG/ML VIAL IVP PRN (08:45)
[2024-07-21] MEDS ORDERED: NIFEdipine 10 MG CAPSULE PO PRN (08:45)
[2024-07-21] MEDS ORDERED: LABETALOL 20 MG/4 ML SYRINGE IVP PRN ×3 (08:45)
[2024-07-21] MEDS ORDERED: miSOPROStoL 200 MCG TABLET BC PRN (08:45)
[2024-07-21] MEDS ORDERED: miSOPROStoL 200 MCG TABLET PR PRN (08:45)
[2024-07-21] MEDS ORDERED: lidocaine 1% 20 ML MDV ID PRN (08:45)
[2024-07-21] MEDS: miSOPROStoL 100 MCG TABLET VG SCH (09:06)
[2024-07-21] MEDS ORDERED: MEASLES,MUMPS & RUBELLA VACC 0.5 ML VIAL SUBQ ONE (09:12)
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
[2024-07-21 09:19] LABS: BASOPHILS % (AUTO) 0.2 %; EOSINOPHILS # (AUTO) 0.1 10^3/uL (0.0-0.7); EOSINOPHILS % (AUTO) 0.7 %; HCT - HEMATOCRIT 36.1 % (37.0-47.0); HGB - HEMOGLOBIN 11.5 g/dL (12.0-16.0); LYMPHOCYTES # (AUTO) 1.9 10^3/uL (1.5-3.5); LYMPHOCYTES % (AUTO) 20.9 %; MEAN CORPUSCULAR HEMOGLOBIN 28.5 pg (27.0-31.0); MEAN CORPUSCULAR HGB CONC 31.9 g/dL (32.0-36.0); MEAN CORPUSCULAR VOLUME 89.4 fL (81.0-99.0); MONOCYTES # (AUTO) 0.7 10^3/uL (0.0-1.0); MONOCYTES % (AUTO) 7.9 %; NEUTROPHILS # (AUTO) 6.4 10^3/uL (1.5-6.6); NEUTROPHILS % (AUTO) 69.2 %; PLT - PLATELET COUNT 199 10^3/uL (130-450); RED BLOOD COUNT 4.04 10^6/uL (4.20-5.40); RED CELL DISTRIBUTION WIDTH 13.1 % (12.0-15.0); WHITE BLOOD COUNT 9.2 x10^3/uL (4.8-10.8)
[2024-07-21 09:30] LABS: ALBUMIN 3.3 g/dL (3.2-5.5); ALBUMIN/GLOBULIN RATIO 1.2 (1.0-2.2); BILIRUBIN,TOTAL 0.3 mg/dL (0.2-1.0); CALCIUM 8.6 mg/dL (8.5-10.3); CREATININE 0.6 mg/dL (0.6-1.3); POTASSIUM 3.7 mmol/L (3.5-4.5); TOTAL PROTEIN 6.1 g/dL (6.4-8.9)
--- NOTE | 2024-07-21 14:34 | PROVIDER PROGRESS NOTE ---
Labor Progress Note Uterine Monitoring Uterine Monitoring Mode: positive External toco Contraction Intensity: positive Mild Uterine Resting Tone: positive Soft Monitoring Monitor Mode: positive External ultrasound Accelerations: positive Present, 15x15 Decelerations: positive None Strip Review: positive Category I Labor Progress Note Labor Progress Note/Additional Text: some contractions after first miso. will repeat now at 1400. reassess in 4 hrs. baby cat 1.
[2024-07-21] MEDS ORDERED: ONDANSETRON 4 MG/2 ML VIAL ONE (17:38)
[2024-07-21] MEDS: fentaNYL 100 MCG/2 ML VIAL IVP PRN (17:43)
[2024-07-21] MEDS: ONDANSETRON 4 MG/2 ML VIAL IVP PRN (17:49)
[2024-07-21] MEDS ORDERED: ROPIVACAINE 0.2% 200 MG/100 ML BAG EP ONE (20:05)
[2024-07-21] MEDS ORDERED: LIDOCAINE 2%-EPI 1:100000 20 ML MDV ONE (20:05)
[2024-07-21] MEDS ORDERED: ePHEDrine 50 MG/ML VIAL IVP ONE (20:50)
[2024-07-21] MEDS ORDERED: METOCLOPRAMIDE 10 MG/2 ML VIAL IVP PRN (21:04)
[2024-07-21] MEDS ORDERED: NALBUPHINE 10 MG/ML AMP IVP PRN (21:04)
[2024-07-21] MEDS ORDERED: NALOXONE 0.4 MG/ML VIAL IVP PRN (21:04)
[2024-07-21] MEDS ORDERED: ONDANSETRON 4 MG/2 ML VIAL IVP PRN (21:04)
[2024-07-21] MEDS ORDERED: diphenhydrAMINE INJ 50 MG/ML VIAL IVP PRN (21:04)
[2024-07-21] MEDS: ePHEDrine 50 MG/ML VIAL IVP PRN (21:05)
--- NOTE | 2024-07-21 21:09 | ANESTHESIA PROCEDURE NOTE ---
Pre-Anesthesia VS, & Labs Diagnosis Surgical Diagnosis:: induction of labor / labor pain Procedure Procedure: placement of labor epidural Vitals Vital Signs: Temp Pulse Resp BP 36.9 C 85 18 112/75 07/21/24 07:33 07/21/24 07:33 07/21/24 07:33 07/21/24 07:33 Height (in): 5 ft 2 in Weight (kg): 74 kg Body Mass Index: 29.8 BMI Classification: Overweight NPO NPO: Other Last Fluid Intake: now on clears Is Patient ?: Yes Estimated Due Date:: 07/21/24 Lab Results Current Lab Results: Laboratory Tests 07/21/24 07:59: WBC 9.2, RBC 4.04 L, Hgb 11.5 L, Hct 36.1 L, MCV 89.4, MCH 28.5, MCHC 31.9 L, RDW 13.1, Plt Count 199, MPV 10.0, Neut # (Auto) 6.4, Lymph # (Auto) 1.9, Ritchie # (Auto) 0.7, Eos # (Auto) 0.1, Baso # (Auto) 0.0, Absolute Nucleated RBC 0.00, Nucleated RBC % 0.0, Sodium 133 L, Potassium 3.7, Chloride 108, Carbon Dioxide 20 L, Anion Gap 5.0 L, BUN 11, Creatinine 0.6, Estimated GFR (MDRD) 125, Glucose 90, Calcium 8.6, Total Bilirubin 0.3, AST 14, ALT 11, A lkaline Phosphatase 236 H, Total Protein 6.1 L, Albumin 3.3, Globulin 2.8, Albumin/Globulin Ratio 1.2, Blood Type A NEGATIVE, Antibody Screen NEGATIVE Lab results reviewed: Yes 07/21/24 07:59 07/21/24 07:59 Meds/Allgy Home Medications Ambulatory Orders Medication Instructions Recorded Confirmed fluticasone propionate 50 1 sprays intranasal DAILY 04/11/23 07/21/24 mcg/actuation nasal spray,suspension vits no.130-ferrous fum 1 tab PO DAILY 04/08/24 07/21/24 27 mg iron-folic acid 800 mcg tablet ( Vitamin) Allergies Allergies Allergy/AdvReac Type Severity Reaction Status Date / Time ibuprofen (From Motrin) Allergy Emesis Verified 07/08/24 14:28 PFSH Surgical History Surgical History [place] teeth extracted Social History Social History Smoking Status: Never smoker Do you dip or chew tobacco?: No Do you vape?: No Living Condition: With spouse/s.o. Living Situation Details: [place] in [place]. he has 2 boys,4 and 5 yo, who live with their mom in [place]. visit them when they can. 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
[2024-07-21] MEDS: OXYTOCIN/SODIUM CHLORIDE 500 ML IV SCH (21:14)
[2024-07-21] MEDS: LACTATED RINGERS 500 ML IV ONE (21:14)
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
[2024-07-22] MEDS ORDERED: SODIUM CHLORIDE 0.9% 1,000 ML ONE ×2 (00:51→13:07)
[2024-07-22] MEDS: ROPIVACAINE 0.2% 200 MG/100 ML BAG EP PRN (06:00)
[2024-07-22] MEDS: SODIUM CHLORIDE 0.9% 1,000 ML IV PRN (13:16)
--- NOTE | 2024-07-22 13:49 | PROVIDER PROGRESS NOTE ---
Labor Progress Note Uterine Monitoring Uterine Monitoring Mode: positive External toco Contraction Frequency (min/apart): 2-4 Contraction Intensity: positive Moderate Monitoring Monitor Mode: positive External ultrasound Heart Rate Baseline: 140 Accelerations: positive Present, 15x15 Decelerations: positive None Strip Review: positive Category I Vaginal Exam Dilation (in cm): 7 Effacement (%): 90 Station: 0 Labor Progress Note Labor Progress Note/Additional Text: Minimal change after 4 hours of oxytocin. IUPC attempted placed earlier, but nurse was unable. I placed on at this time after discussion with patient. Cervix is very thin and hopefully should continue to dilate. Can titrate oxytocin per IUPC. Comfortable with epidural. Anticipate .
[2024-07-22] MEDS ORDERED: fentaNYL 100 MCG/2 ML VIAL ONE (15:00)
[2024-07-22] MEDS ORDERED: SODIUM CHLORIDE 0.9% 10 ML VIAL IVP ONE (15:00)
[2024-07-22] MEDS ORDERED: LIDOCAINE-PF 2% 10 ML AMP SUBQ ONE (15:01)
--- NOTE | 2024-07-22 15:14 | ANESTHESIA PROCEDURE NOTE ---
Anesthesia Epidural Template Patient Report Patient Reports: positive Inadequate control (L-5 level on left rocio, L1 level on right side) Exam Epidural Medication Information: Epidural Medications Medication Ropivicaine Continuous Infusion Rate (mL/ 10 hr) Demand Dose Setting 4 Plan Plan: positive Other (Epidural bolused with 5ml 2% lidocaine, 100 mcg fentanyl and 3ml PF NS. Rate increased to 10ml/hr with 6ml q10 mins pcea) Other Comments Other Comments: Patient reports improved pain control after bolus
--- NOTE | 2024-07-22 19:35 | PROVIDER PROGRESS NOTE ---
Labor Progress Note Uterine Monitoring Uterine Monitoring Mode: positive IUPC Contraction Frequency (min/apart): 3-4 Monitoring Monitor Mode: positive External ultrasound Heart Rate Baseline: 150 Heart Rate Variability: positive Moderate (6-25 bmp) Accelerations: positive Present, 15x15 Decelerations: positive None Strip Review: positive Category I Labor Progress Note Labor Progress Note/Additional Text: Have been pushing with patient on and off with nursing. Discussed prolonged second stage and indications for failure to descend and possible section if she stops, but she continues to make progress. Overall category 1. Moderate variability with periods of minimal. No decelerations when not pushing. Did take a break from pushing for short while. Patient remains with good energy. Fetus tolerating pushing.
[2024-07-22] MEDS: LACTATED RINGERS 1,000 ML IV PRN (21:24)
--- NOTE | 2024-07-22 22:28 | DELIVERY NOTE ---
Delivery Note Labor Labor: positive Induced by oxytocin Infant Delivery Method Delivery Method: positive Spontaneous vaginal delivery Cervical Ripening Method Cervical Ripening Method: positive Balloon device and Misoprostil Presentation Presentation: positive Vertex Nuchal Cord Nuchal Cord: positive None Amniotic Fluid Description Amniotic Fluid Description: positive Clear Laceration Laceration: positive 2nd degree Suture Suture Type: positive Vicryl Suture Size: positive 3-0 Delivery Outcome Delivery Date: 07/22/24 Delivery Outcome: positive Livebirth [place]: positive Placed in direct skin contact with mother sex: positive Female Cord Cord: positive 3 vessels Placenta Placenta: positive Intact Estimated Blood Loss Estimated Blood Loss (in cc): 300 Post Delivery Events Post Delivery Events: positive No post delivery events Delivery Comments (Free Text/Narrative) Delivery Comments (Free Text/Narrative): Preoperative Diagnoses 41 weeks gestation Rh- Postoperative Diagnoses Same Prolonged second stage Delivery of live lewis Status post spontaneous vaginal delivery Summary Patient was admitted at 41 weeks gestation for planned induction of labor. She received misoprostol and a balloon, but only tolerated this for short while and was removed. She then had oxytocin started. She received an epidural for pain control. She had spontaneous rupture of membranes at approximately 0735 this morning. She progressed throughout the day until complete and started pushing. She initially made good progress, then slowed. As we titrated oxytocin, she began making progress again but had a prolonged second stage. Throughout the process, we discussed vacuum assistance if she got tired, we decided further signs of distress, or she is not making progress, but she continued make slow steady progress, we continued pushing. At approximately 5 hours of pushing, we called the surgery team and to set up the OR IV attempted vacuum-assisted vaginal delivery. At that time, while waiting for the team, she began pushing very well and made good progress and that had a large crown without needing a vacuum. Delivery Summary: Patient was placed in the dorsal lithotomy position. Upon maternal pushing the head was delivered atraumatically followed by the anterior shoulder, posterior shoulder, then the remainder of the 's body. A female infant was delivered with APGARS of 8 at 1 minute and 9 at 5 minutes. The was placed on its mother's chest . After the cord finished pulsating, the umbilical cord was clamped times two and cut. The placenta delivered intact with three vessel cord. Placenta was not sent to pathology. Thirty units of Pitocin were added to the IV fluid and allowed to run freely. Uterine massage was performed until uterus was deemed firm. Upon inspection of the perineum, secondary midline laceration was noted and repaired with a running suture of 3-0 Vicryl. Upon re-inspection the patient was hemostatic. Uterus again massaged and found to be firm. Needle and sponge counts were correct. Patient was stable and allowed to recover in L&D room. Infant was stable and remained in room with mother. weight is pending at this time.
[2024-07-22] MEDS: TRANEXAMIC ACID IN NACL 1,000 MG/100 ML BAG IV PRN (22:52)
[2024-07-22] MEDS: METHYLERGONOVINE 0.2 MG/ML VIAL IM PRN (22:54)
[2024-07-22] MEDS: OXYTOCIN/SODIUM CHLORIDE 500 ML IV PRN (22:59)
[2024-07-22 23:17] LABS: HCT - HEMATOCRIT 33.3 % (37.0-47.0); HGB - HEMOGLOBIN 10.8 g/dL (12.0-16.0)
[2024-07-22] MEDS ORDERED: ACETAMINOPHEN 500 MG TABLET PO ONE (23:20)
[2024-07-22] MEDS ORDERED: ONDANSETRON 4 MG/2 ML VIAL IVP PRN (23:23)
[2024-07-22] MEDS ORDERED: SIMETHICONE CHEW 80 MG TABLET PO PRN (23:23)
[2024-07-22] MEDS ORDERED: CALCIUM CARBONATE CHEW 500 MG TABLET PO PRN (23:23)
[2024-07-22] MEDS ORDERED: WITCH HAZEL/GLYCERIN 1 PAD TOP PRN (23:23)
[2024-07-22] MEDS: ACETAMINOPHEN 500 MG TABLET PO SCH (23:25)
[2024-07-22] MEDS ORDERED: LACTATED RINGERS 1,000 ML IV SCH (23:45)
[2024-07-23] MEDS ORDERED: IBUPROFEN 600 MG TABLET PO SCH
[2024-07-23] MEDS: NAPROXEN 250 MG TABLET PO PRN (01:47)
[2024-07-23] MEDS: oxyCODONE 5 MG TABLET PO SCH (02:50)
[2024-07-23] MEDS ORDERED: oxyCODONE 5 MG TABLET PO ONE (03:00)
[2024-07-23 06:22] LABS: BASOPHILS # (AUTO) 0.1 10^3/uL (0.0-0.1); BASOPHILS % (AUTO) 0.3 %; EOSINOPHILS % (AUTO) 0.1 %; HCT - HEMATOCRIT 26.8 % (37.0-47.0); HGB - HEMOGLOBIN 8.7 g/dL (12.0-16.0); LYMPHOCYTES # (AUTO) 1.7 10^3/uL (1.5-3.5); LYMPHOCYTES % (AUTO) 8.7 %; MEAN CORPUSCULAR HEMOGLOBIN 29.1 pg (27.0-31.0); MEAN CORPUSCULAR HGB CONC 32.5 g/dL (32.0-36.0); MEAN CORPUSCULAR VOLUME 89.6 fL (81.0-99.0); MEAN PLATELET VOLUME 10.1 fL (7.9-10.8); MONOCYTES # (AUTO) 1.3 10^3/uL (0.0-1.0); MONOCYTES % (AUTO) 6.5 %; NEUTROPHILS # (AUTO) 16.1 10^3/uL (1.5-6.6); NEUTROPHILS % (AUTO) 83.6 %; PLT - PLATELET COUNT 161 10^3/uL (130-450); RED BLOOD COUNT 2.99 10^6/uL (4.20-5.40); RED CELL DISTRIBUTION WIDTH 13.2 % (12.0-15.0); WHITE BLOOD COUNT 19.3 x10^3/uL (4.8-10.8)
[2024-07-23] MEDS ORDERED: LIDOCAINE JELLY 2% 6 ML JEL.PF.APP ONE (07:14)
[2024-07-23] MEDS ORDERED: LIDOCAINE TOPICAL 4% 50 ML BOTTLE TOP ONE (07:14)
[2024-07-23] MEDS: SODIUM CHLORIDE FLUSH 0.9% 10 ML SYRINGE IVP SCH (07:47)
[2024-07-23] MEDS: fentaNYL 100 MCG/2 ML VIAL IVP ONE (07:51)
[2024-07-23] MEDS: LIDOCAINE JELLY 2% 6 ML JEL.PF.APP TOP ONE (07:51)
[2024-07-23] MEDS ORDERED: SODIUM CHLORIDE FLUSH 0.9% 10 ML SYRINGE IVP PRN (08:02)
[2024-07-23] MEDS: oxyCODONE 5 MG TABLET PO ONE (13:37)
--- NOTE | 2024-07-23 15:20 | PROVIDER PROGRESS NOTE ---
Assessment/Plan Problem List (1) Post term , 41 weeks: (2) Encounter for planned induction of labor: (3) care and examination of lactating mother: (4) Labial swelling: Current Meds Current Meds: Current Medications Generic Name Dose Route Start Last Admin Trade Name Freq PRN Reason Stop Dose Admin Acetaminophen 1,000 mg 07/22/24 23:45 07/23/24 08:32 Acetaminophen 500 Mg Tablet PO 1,000 mg Q8HR KAYODE Administration Calcium Carbonate/Glycine 500 mg 07/22/24 23:23 Calcium Carbonate Chew 500 Mg Tablet PO TID PRN Heartburn Hydralazine HCl 5 - 10 mg 07/21/24 08:45 Hydralazine Inj 20 Mg/Ml Vial IVP Q20M PRN SBP> or= 160 OR DBP> or= 110 Protocol Sodium Chloride 1,000 mls @ 0 mls/hr 07/21/24 22:04 07/23/24 09:33 Normal Saline 0.9% IV Infused Q24H PRN Infusion TKO RATE TKO Lactated Ringer's 1,000 mls @ 100 mls/hr 07/22/24 23:45 Lr IV .Q10H KAYODE Labetalol HCl 20 - 80 mg 07/21/24 08:45 Labetalol 20 Mg/4 Ml Syringe IVP Q10M PRN SBP> or= 160 OR DBP> or= 110 Protocol Labetalol HCl 20 mg 07/21/24 08:45 Labetalol 20 Mg/4 Ml Syringe IVP .ONCE PRN SBP> or= 160 OR DBP> or= 110 Protocol Labetalol HCl 20 - 40 mg 07/21/24 08:45 Labetalol 20 Mg/4 Ml Syringe IVP Q10M PRN SBP> or= 160 OR DBP> or= 110 Protocol Naproxen 250 mg 07/23/24 01:32 07/23/24 12:36 Naproxen 250 Mg Tablet PO 250 mg TID PRN Administration Moderate Pain (Level 4-6) Nifedipine 10 - 20 mg 07/21/24 08:45 Nifedipine 10 Mg Capsule PO Q20M PRN SBP> or= 160 OR DBP> or= 110 Protocol Ondansetron HCl 4 mg 07/22/24 23:23 Ondansetron 4 Mg/2 Ml Vial IVP Q4HR PRN Nausea / Vomiting Simethicone 80 mg 07/22/24 23:23 Simethicone Chew 80 Mg Tablet PO TID PRN Gas Sodium Chloride 10 ml 07/23/24 08:02 Sodium Chloride Flush 0.9% 10 Ml Syringe IVP PRN PRN NEEDED PER PROVIDER ORDERS Witch Corinne/Glycerin 1 pad 07/22/24 23:23 Witch Corinne/Glycerin 1 Pad TOP PRN PRN ITCHING Lab Result 07/23/24 06:11 07/21/24 07:59 Additional Planning My Orders: My Active Orders 07/22/24 23:23 Activity - [RC] QSHIFT IO [RC] Q4H Notify Provider - VS Parameter [RC] .notify Checks - OB [RC] Q15MX8,Q1HRX2,Q4HRX6,QSHIFT Vital Signs - OB [RC] Q15MX8,Q1HRX2,Q4HRX6,QSHIFT Calcium Carbonate [Tums] 500 mg PO TID PRN Ondansetron Inj [Zofran Inj] 4 mg IVP Q4HR PRN Simethicone [Mylicon] 80 mg PO TID PRN Witch Corinne/Glycerin [Tucks] 1 pad TOP PRN PRN Condition of Patient [OTHERS] Routine DVT Prophylaxis [OTHERS] Routine 07/22/24 23:45 Acetaminophen [Tylenol] 1,000 mg PO Q8HR Lactated Ringers [Lr] 1,000 ml IV 100 mls/hr 07/23/24 01:32 Naproxen [Naprosyn] 250 mg PO TID PRN 07/23/24 Breakfast Regular Diet [DIET] Objective Vital Signs: Vital Signs - 24 hr 07/22/24 17:15 07/22/24 22:30 07/22/24 22:45 Temperature Temperature Source Pulse Rate [Brachial] 80 127 H Respiratory Rate 18 18 Blood Pressure [Right Brachial artery] 124/71 124/70 114/65 O2 Saturation Pain Intensity Pain Intensity [Generalized] 07/22/24 22:48 07/22/24 22:48 07/22/24 22:54 Temperature 38.6 C H 38.6 C H Temperature Source Oral Axillary Pulse Rate [Brachial] 189 H Respiratory Rate 18 Blood Pressure [Right Brachial artery] 87/44 L O2 Saturation Pain Intensity Pain Intensity [Generalized] 07/22/24 23:01 07/22/24 23:05 07/22/24 23:13 Temperature Temperature Source Pulse Rate [Brachial] 101 H 89 101 H Respiratory Rate Blood Pressure [Right Brachial artery] 72/47 L 73/45 L 104/55 L O2 Saturation 100 100 100 Pain Intensity Pain Intensity [Generalized] 07/22/24 23:16 07/22/24 23:16 07/22/24 23:25 Temperature 38.8 C H Temperature Source Axillary Pulse Rate [Brachial] 109 H Respiratory Rate Blood Pressure [Right Brachial artery] 97/64 O2 Saturation 100 Pain Intensity 8 Pain Intensity [Generalized] 07/22/24 23:27 07/22/24 23:30 07/22/24 23:45 Temperature Temperature Source Pulse Rate [Brachial] 91 93 98 Respiratory Rate 19 Blood Pressure [Right Brachial artery] 109/74 97/64 108/71 O2 Saturation 100 100 99 Pain Intensity Pain Intensity [Generalized] 07/23/24 00:00 07/23/24 00:15 07/23/24 00:30 Temperature Temperature Source Pulse Rate [Brachial] 125 H 92 83 Respiratory Rate Blood Pressure [Right Brachial artery] 105/80 115/75 99/81 O2 Saturation Pain Intensity Pain Intensity [Generalized] 07/23/24 00:35 07/23/24 01:00 07/23/24 01:47 Temperature 36.9 C Temperature Source Oral Pulse Rate [Brachial] 79 Respiratory Rate 18 Blood Pressure [Right Brachial artery] 103/67 O2 Saturation Pain Intensity 7 Pain Intensity [Generalized] 07/23/24 02:15 07/23/24 02:17 07/23/24 02:50 Temperature 36.9 C Temperature Source Axillary Pulse Rate [Brachial] 74 Respiratory Rate 18 Blood Pressure [Right Brachial artery] 112/57 L O2 Saturation Pain Intensity 7 7 Pain Intensity [Generalized] 07/23/24 03:19 07/23/24 04:03 07/23/24 07:51 Temperature 37.2 C Temperature Source Oral Pulse Rate [Brachial] 71 Respiratory Rate 19 Blood Pressure [Right Brachial artery] 118/68 O2 Saturation 97 Pain Intensity 7 Pain Intensity [Generalized] 7 07/23/24 08:32 07/23/24 08:35 07/23/24 12:36 Temperature 36.5 C Temperature Source Oral Pulse Rate [Brachial] 76 Respiratory Rate 16 Blood Pressure [Right Brachial artery] 107/57 L O2 Saturation 96 Pain Intensity 4 5 Pain Intensity [Generalized] 07/23/24 13:14 07/23/24 13:37 Temperature 36.1 C L Temperature Source Axillary Pulse Rate [Brachial] 70 Respiratory Rate 18 Blood Pressure [Right Brachial artery] 112/62 O2 Saturation 97 Pain Intensity 7 Pain Intensity [Generalized] Oxygen O2 Source Room air I&O (Last 24 Hrs): Intake and Output Totals x24h 07/21/24 07/22/24 07/23/24 23:59 23:59 23:59 Intake Total 506 / 506 1693 / 1693 513 / 513 Output Total 4375 / 4375 1800 / 1800 Balance 506 / 506 -2682 / -2682 -1287 / -1287 Results Results: Laboratory Results WBC 19.3 x10^3/uL (4.8-10.8) H 07/23/24 06:11 RBC 2.99 10^6/uL (4.20-5.40) L 07/23/24 06:11 Hgb 8.7 g/dL (12.0-16.0) L 07/23/24 06:11 Hct 26.8 % (37.0-47.0) L 07/23/24 06:11 MCV 89.6 fL (81.0-99.0) 07/23/24 06:11 MCH 29.1 pg (27.0-31.0) 07/23/24 06:11 MCHC 32.5 g/dL (32.0-36.0) 07/23/24 06:11 RDW 13.2 % (12.0-15.0) 07/23/24 06:11 Plt Count 161 10^3/uL (130-450) 07/23/24 06:11 MPV 10.1 fL (7.9-10.8) 07/23/24 06:11 Neut # (Auto) 16.1 10^3/uL (1.5-6.6) H 07/23/24 06:11 Lymph # (Auto) 1.7 10^3/uL (1.5-3.5) 07/23/24 06:11 [place] # (Auto) 1.3 10^3/uL (0.0-1.0) H 07/23/24 06:11 Eos # (Auto) 0.0 10^3/uL (0.0-0.7) 07/23/24 06:11 Baso # (Auto) 0.1 10^3/uL (0.0-0.1) 07/23/24 06:11 Absolute Nucleated RBC 0.00 x10^3/uL 07/23/24 06:11 Nucleated RBC % 0.0 /100WBC 07/23/24 06:11 Sodium 133 mmol/L (135-145) L 07/21/24 07:59 Potassium 3.7 mmol/L (3.5-4.5) 07/21/24 07:59 Chloride 108 mmol/L (101-111) 07/21/24 07:59 Carbon Dioxide 20 mmol/L (21-32) L 07/21/24 07:59 Anion Gap 5.0 (6-13) L 07/21/24 07:59 BUN 11 mg/dL (6-20) 07/21/24 07:59 Creatinine 0.6 mg/dL (0.6-1.3) 07/21/24 07:59 Estimated GFR (MDRD) 125 (>89) 07/21/24 07:59 Glucose 90 mg/dL (74-104) 07/21/24 07:59 Calcium 8.6 mg/dL (8.5-10.3) 07/21/24 07:59 Total Bilirubin 0.3 mg/dL (0.2-1.0) 07/21/24 07:59 AST 14 IU/L (10-42) 07/21/24 07:59 ALT 11 IU/L (10-60) 07/21/24 07:59 Alkaline Phosphatase 236 IU/L (42-121) H 07/21/24 07:59 Total Protein 6.1 g/dL (6.4-8.9) L 07/21/24 07:59 Albumin 3.3 g/dL (3.2-5.5) 07/21/24 07:59 Globulin 2.8 g/dL (2.1-4.2) 07/21/24 07:59 Albumin/Globulin Ratio 1.2 (1.0-2.2) 07/21/24 07:59 Blood Type A NEGATIVE 07/23/24 06:11 Weak D (Du) WEAK-D NEGATIVE 12/24/24 06:11 Antibody Screen NEGATIVE 07/21/24 07:59 Maternal Bleed NEGATIVE (NEGATIVE) 07/23/24 06:11 Current Medications Current Medications Current Medications: Current Medications Generic Name Dose Route Start Last Admin Trade Name Chani PRN Reason Stop Dose Admin Acetaminophen 1,000 mg 07/22/24 23:45 07/23/24 08:32 Acetaminophen 500 Mg Tablet PO 1,000 mg Q8HR KAYODE Administration Calcium Carbonate/Glycine 500 mg 07/22/24 23:23 Calcium Carbonate Chew 500 Mg Tablet PO TID PRN Heartburn Hydralazine HCl 5 - 10 mg 07/21/24 08:45 Hydralazine Inj 20 Mg/Ml Vial IVP Q20M PRN SBP> or= 160 OR DBP> or= 110 Protocol Sodium Chloride 1,000 mls @ 0 mls/hr 07/21/24 22:04 07/23/24 09:33 Normal Saline 0.9% IV Infused Q24H PRN Infusion TKO RATE TKO Lactated Ringer's 1,000 mls @ 100 mls/hr 07/22/24 23:45 Lr IV .Q10H [facility] Labetalol HCl 20 - 80 mg 07/21/24 08:45 Labetalol 20 Mg/4 Ml Syringe IVP Q10M PRN SBP> or= 160 OR DBP> or= 110 Protocol Labetalol HCl 20 mg 07/21/24 08:45 Labetalol 20 Mg/4 Ml Syringe IVP .ONCE PRN SBP> or= 160 OR DBP> or= 110 Protocol Labetalol HCl 20 - 40 mg 07/21/24 08:45 Labetalol 20 Mg/4 Ml Syringe IVP Q10M PRN SBP> or= 160 OR DBP> or= 110 Protocol Naproxen 250 mg 07/23/24 01:32 07/23/24 12:36 Naproxen 250 Mg Tablet PO 250 mg TID PRN Administration Moderate Pain (Level 4-6) Nifedipine 10 - 20 mg 07/21/24 08:45 Nifedipine 10 Mg Capsule PO Q20M PRN SBP> or= 160 OR DBP> or= 110 Protocol Ondansetron HCl 4 mg 07/22/24 23:23 Ondansetron 4 Mg/2 Ml Vial IVP Q4HR PRN Nausea / Vomiting Simethicone 80 mg 07/22/24 23:23 Simethicone Chew 80 Mg Tablet PO TID PRN Gas Sodium Chloride 10 ml 07/23/24 08:02 Sodium Chloride Flush 0.9% 10 Ml Syringe IVP PRN PRN NEEDED PER PROVIDER ORDERS Witch Corinne/Glycerin 1 pad 07/22/24 23:23 Witch Corinne/Glycerin 1 Pad TOP PRN PRN ITCHING
--- NOTE | 2024-07-23 15:26 | PROVIDER PROGRESS NOTE ---
Current Medications Current Medications Current Medications: Current Medications Generic Name Dose Route Start Last Admin Trade Name Freq PRN Reason Stop Dose Admin Acetaminophen 1,000 mg 07/22/24 23:45 07/23/24 08:32 Acetaminophen 500 Mg Tablet PO 1,000 mg Q8HR KAYODE Administration Calcium Carbonate/Glycine 500 mg 07/22/24 23:23 Calcium Carbonate Chew 500 Mg Tablet PO TID PRN Heartburn Hydralazine HCl 5 - 10 mg 07/21/24 08:45 Hydralazine Inj 20 Mg/Ml Vial IVP Q20M PRN SBP> or= 160 OR DBP> or= 110 Protocol Sodium Chloride 1,000 mls @ 0 mls/hr 07/21/24 22:04 07/23/24 09:33 Normal Saline 0.9% IV Infused Q24H PRN Infusion TKO RATE TKO Lactated Ringer's 1,000 mls @ 100 mls/hr 07/22/24 23:45 Lr IV .Q10H KAYODE Labetalol HCl 20 - 80 mg 07/21/24 08:45 Labetalol 20 Mg/4 Ml Syringe IVP Q10M PRN SBP> or= 160 OR DBP> or= 110 Protocol Labetalol HCl 20 mg 07/21/24 08:45 Labetalol 20 Mg/4 Ml Syringe IVP .ONCE PRN SBP> or= 160 OR DBP> or= 110 Protocol Labetalol HCl 20 - 40 mg 07/21/24 08:45 Labetalol 20 Mg/4 Ml Syringe IVP Q10M PRN SBP> or= 160 OR DBP> or= 110 Protocol Measles/Mumps/Rubella Vaccine Live 0.5 ml 07/23/24 15:20 Measles,Mumps & Rubella Vacc 0.5 Ml Vial SUBQ 07/23/24 15:21 .ONCE ONE Naproxen 250 mg 07/23/24 01:32 07/23/24 12:36 Naproxen 250 Mg Tablet PO 250 mg TID PRN Administration Moderate Pain (Level 4-6) Nifedipine 10 - 20 mg 07/21/24 08:45 Nifedipine 10 Mg Capsule PO Q20M PRN SBP> or= 160 OR DBP> or= 110 Protocol Ondansetron HCl 4 mg 07/22/24 23:23 Ondansetron 4 Mg/2 Ml Vial IVP Q4HR PRN Nausea / Vomiting Simethicone 80 mg 07/22/24 23:23 Simethicone Chew 80 Mg Tablet PO TID PRN Gas Sodium Chloride 10 ml 07/23/24 08:02 Sodium Chloride Flush 0.9% 10 Ml Syringe IVP PRN PRN NEEDED PER PROVIDER ORDERS Witch Corinne/Glycerin 1 pad 07/22/24 23:23 Witch Corinne/Glycerin 1 Pad TOP PRN PRN ITCHING Objective Vital Signs/Intake & Output Vital Signs: Vital Signs x48h Temp Pulse Resp BP Pulse Ox 07/23/24 13:14 36.1 C L 70 18 112/62 97 07/23/24 08:35 36.5 C 76 16 107/57 L 96 Intake & Output: Intake & Output 07/20/24 07/21/24 07/22/24 07/23/24 23:59 23:59 23:59 23:59 Intake Total 506 / 506 1693 / 1693 513 / 513 Output Total 4375 / 4375 1800 / 1800 Balance 506 / 506 -2682 / -2682 -1287 / -1287 Weight (kg) 163 lb 2.273 oz Lab Results 07/23/24 06:11 07/21/24 07:59 Other Labs: Lab Results x24hrs 07/23/24 07/22/24 Range/Units 06:11 23:10 WBC 19.3 H (4.8-10.8) x10^3/uL RBC 2.99 L (4.20-5.40) 10^6/uL Hgb 8.7 L 10.8 L (12.0-16.0) g/dL Hct 26.8 L 33.3 L (37.0-47.0) % MCV 89.6 (81.0-99.0) fL MCH 29.1 (27.0-31.0) pg MCHC 32.5 (32.0-36.0) g/dL RDW 13.2 (12.0-15.0) % Plt Count 161 (130-450) 10^3/uL MPV 10.1 (7.9-10.8) fL Neut # (Auto) 16.1 H (1.5-6.6) 10^3/uL Lymph # (Auto) 1.7 (1.5-3.5) 10^3/uL [place] # (Auto) 1.3 H (0.0-1.0) 10^3/uL Eos # (Auto) 0.0 (0.0-0.7) 10^3/uL Baso # (Auto) 0.1 (0.0-0.1) 10^3/uL Absolute Nucleated RBC 0.00 x10^3/uL Nucleated RBC % 0.0 /100WBC Blood Type A NEGATIVE Weak D (Du) WEAK-D NEGATIVE Maternal Bleed NEGATIVE (NEGATIVE) Other Results/Comments Other Results/Comments: Subjective Patient reports she is doing well. Lochia appropriate. Denies heavy bleeding. Ambulating. Pelvic and abdominal pain well-controlled. Tolerating oral intake. Diet: Regular. Voiding without difficulty. Passing flatus. Denies BM. Patient is bonding with baby in room Breast feeding going well. Denies feeling lightheaded, dizzy or excessively fatigued. Control: IUD Objective General: Alert, oriented, no apparent distress. Cardiovascular: Regular rate. Regular rhythm. Lungs: No increased work of breathing. Abdomen: Uterus firm. Below umbilicus. No guarding or rebound. Extremities: No pain on palpation. No cords palpated. Distal pulses intact. : Significant swelling with tense edematous labia. Lezama in place. Minimal bleeding. Assessment/Plan Problem List (1) care and examination of lactating mother: Impression: Routine care and support (2) Labial swelling: Impression: Continue ice packs continue until swelling goes down, patient can ambulate, and void on her own. (3) Not immune to rubella: Impression: MMR prior to discharge. (4) Rh incompatibility in : Impression: RhoGAM as indicated by screening.
[2024-07-23] MEDS ORDERED: MEASLES,MUMPS & RUBELLA VACC 0.5 ML VIAL SUBQ ONE (16:00)
[2024-07-23] MEDS ORDERED: LIDOCAINE OINTMENT 5% 35.44 GM TUBE TOP PRN (20:53)
[2024-07-23] MEDS ORDERED: NAPROXEN 250 MG TABLET PO SCH (22:00)
[2024-07-23] MEDS: DOCUSATE SODIUM 100 MG CAPSULE PO SCH (23:34)
[2024-07-24] MEDS ORDERED: RHO(D) IMMUNE GLOBULIN 300 MCG SYRINGE IM ONE (08:09)
[2024-07-24] MEDS: NAPROXEN 250 MG TABLET PO SCH (09:02)
[2024-07-24] MEDS: oxyCODONE 5 MG TABLET PO PRN (11:34)
[2024-07-24] MEDS ORDERED: LIDOCAINE JELLY 2% 6 ML JEL.PF.APP ONE (11:48)
[2024-07-24] MEDS: RHO(D) IMMUNE GLOBULIN 300 MCG SYRINGE IVP ONE (12:28)
[2024-07-24] MEDS: LIDOCAINE JELLY 2% 6 ML JEL.PF.APP TOP PRN (12:28)
[2024-07-24] MEDS: IRON DEXTRAN 1,000 MG in SODIUM CHLORIDE 0.9% 250 ML IV ONE (13:12)
[2024-07-24 13:15] VITALS: O2SAT 98
[2024-07-24] MEDS ORDERED: MEASLES,MUMPS & RUBELLA VACC 0.5 ML VIAL SUBQ ONE (14:00)
--- NOTE | 2024-07-24 16:16 | Discharge Summary ---
"Discharge Summary Admit Date: 07/22/24 Discharge Date: 07/24/24 Discharging Provider: Junie Silva MD Code Status: Attempt Resuscitation DIAGNOSES Admission Diagnoses: induction of labor at 41 weeks. Discharge Diagnoses with Status of Each Condition: vaginal delivery with prolonged second stage of labor. anemia for acute blood loss. post labia swelling. HPI History of Present Illness: 24 yo with at 41 weeks. admitted for labor induction. otherwise uncomplicated CONSULTS | PROCEDURES Procedures: vaginal delivery. HOSPITAL COURSE Hospital Course: admitted for induction. miso x 2 and briseyda alot. put in a catheter in her cervix and she only tolerated that for about an hr. wanted her epidural. placed without complication. Pitocin started, she was 2 cm. SROM in am. progressed to complete and then pushed for about 6 hours on and off to vaginal delivery by Dr. Bauer at 2202 on 07/23. about 1 hr pp she had a hemorrhage with total blood loss about 1000 cc. Post her labia were very swollen. She has a catheter in for 24 hrs to enable outflow of her urine. In am of PPD 2 catheter was removed and she was able to void. She was given 1 gm iv iron Dextran , but there was issues with the IV and she did not get the entire gram. She discharged home. She is rubella equivacol and got MMR vaccine. Jovita is A neg and baby was O Pos so she received Rhogam. Baby girl Belen was 3735 gm, 20 inches long. Apgars 8/9. ALLERGIES Allergies Allergy/AdvReac Type Severity Reaction Status Date / Time ibuprofen (From Motrin) Allergy Emesis Verified 07/08/24 14:28 MEDICATIONS Ambulatory Orders Medication Instructions Recorded Confirmed fluticasone propionate 50 1 sprays intranasal DAILY 04/11/23 07/21/24 mcg/actuation nasal spray,suspension vits no.130-ferrous fum 1 tab PO DAILY 04/08/24 07/21/24 27 mg iron-folic acid 800 mcg tablet ( Vitamin) acetaminophen 500 mg tablet 1,000 mg (2 x 500 mg) PO Q8HR #0 07/24/24 tabs calcium carbonate 500 mg (2.5 x 200 mg calcium (500 07/24/24 mg)) PO TID PRN Heartburn #0 tabs docusate sodium 100 mg capsule 100 mg PO BID #0 caps 07/24/24 naproxen 250 mg tablet 500 mg (2 x 250 mg) PO BID #0 tabs 07/24/24 Home Medications Other | Comments: naproxen 500 mg bid that she has at home. tylenol as needed continued vitamins. PHYSICAL EXAM AT DISCHARGE General Appearance: positive No acute distress and Alert Respiratory: positive No respiratory distress Cardiovascular: positive Regular rate & rhythm Abdomen: positive Non-tender Extremities: positive Non-tender Physical Exam Other/Comments: labia majora and minora are bilaterally quite swollen but better than yesterday. She is able to void. LABS 07/23/24 06:11 07/21/24 07:59 FOLLOW UP Follow Up: in clinic 1 week TIME SPENT Time Spent in Discharge (Minutes): 30 Discharge Plan Discharge Patient Disposition: JAIL, Self Care Prescriptions: New acetaminophen 500 mg Tablet 1,000 mg PO Q8HR Qty: 0 0RF calcium carbonate 200 mg calcium (500 mg) Tablet,Chewable 500 mg PO TID PRN (Reason: Heartburn) Qty: 0 0RF docusate sodium 100 mg Capsule 100 mg PO BID Qty: 0 0RF naproxen 250 mg Tablet 500 mg PO BID Qty: 0 0RF Continued fluticasone propionate 120 SPRAYS spray,suspension 1 sprays intranasal DAILY Vitamin 1 EACH tablet 1 tab PO DAILY Activity Restrictions: Additional Comments Activity Restrictions/Additional Instructions: pelvic rest for 6 weeks. keep barrier cream on vulva. Naproxen bid, eat foods to avoid constipation. Diet: Regular Print Language: Pashto Patient Instructions: Vaginal,"
[2024-07-24] MEDS: MAGNESIUM HYDROXIDE 2,400 MG/30 ML UDC PO PRN (17:32)
[2024-07-24 18:10] VITALS: BP 99/51; TEMP 97.7
--- NOTE | 2024-07-24 18:26 | Labor Flowsheet ---
Labor Flowsheet Datetime Report Generated by CPN: 07/24/2024 18:26 Datetime: 07/24/2024 17:53 VITAL SIGNS NBP Sys/Jing/Mean (mmHg): 99 : 51 : 63 Pulse: 76 Datetime: 07/24/2024 16:14 SpO2 (%): 98 Datetime: 07/23/2024 01:10 Stage of : Recovery Epidural Procedure Other: Cath Removed; Cath Intact Datetime: 07/22/2024 23:16 Temperature (C): 38.8 Temperature Route: Axillary Datetime: 07/22/2024 22:54 Medication Comments: methergine 0.2mg IM left thigh Datetime: 07/22/2024 22:45 Anesthesia Comments: pump stopped, line clamped COMMUNICATION Communication: Provider at Bedside Provider Notified (Name): Dr. Bauer Notification Reason: Maternal Vital Sign Change; Bleeding Communication Comments: Provider notified of pt's increased bleeding, MD continously at bedside Datetime: 07/22/2024 22:30 I/O Interventions: Straight Cath (ml) @ Patient Care Comments: 400 u/o Datetime: 07/22/2024 22:15 LaborFlag: Labor Datetime: 07/22/2024 22:08 STAGE 2 Stage 2 Comments: placenta Datetime: 07/22/2024 22:00 UTERINE ACTIVITY Monitor Mode: Internal Frequency (min): 3-4 Quality: Strong Duration (sec): 100-110 Pattern: Normal: <= 5 Contractions in 10 Minutes Resting Tone (Palpate): Relaxed Resting Tone IUP (mmHg): 40 Contraction Comments: unable to assess MVU's while pt is pushing ASSESSMENT A Monitor Mode: External US FHR Baseline Rate : 170 FHR Baseline Changes: Tachycardia Variability: Moderate 6-25 bpm Accelerations: None Decelerations: Late; Variable Actions for Decelerations: Other Station: 4 Exam by: Dr Juancarlos Hirsch Comments: 2201- of viable NB girl Datetime: 07/22/2024 21:40 Pitocin Checklist: At Least 1 Acceleration of 15 bpm x 15 Seconds in 30 Minutes or Adequate Variabi lity; No More than 1 Late Deceleration Occurred in Past 30 Minutes; No More than 2 Variable Decelerat ions > 60 Seconds in Duration and decreasing >60 bpm in 30 minutes; No More than 5 Uterine Contractio ns in 10 Minutes for any 20 Minute Interval; Uterus Palpates Soft between Contractions MEDICATIONS Pitocin (milliunits): Increased to @ 28mu Datetime: 07/22/2024 21:24 PATIENT CARE IV/Blood Work: IV Bolus Started; IV Bolus Given ml @ 250 Datetime: 07/22/2024 20:30 Comments: pt pushing; physician at bedside Datetime: 07/22/2024 19:45 Intensity IUP (mmHg): 50-60 Datetime: 07/22/2024 19:15 [place] UNITS (Computed) Contractions in Ten Minutes: 4 Datetime: 07/22/2024 19:00 Category: Category II Datetime: 07/22/2024 17:14 Patient Position/Activity: Knee Chest Datetime: 07/22/2024 15:13 VAGINAL EXAM Dilatation (cm): 10.0 Effacement (%): 100 Datetime: 07/22/2024 15:02 Anesthesia Level Check: T11 Datetime: 07/22/2024 15:00 [place] Units (mmHg): 100 Datetime: 07/22/2024 14:37 PAIN Pain Scale: 7 Pain Presence: Constant Pain Type: Contraction Pain Location: Abdomen Pain Assessment Comments: Pt endorsing 7 pain to RLQ of abdomen. Patient repostioned to R side a nd bolus button utilized. PC to [place], SENIOR INSTRUCTIONAL DESIGNER for epidural bolus. SENIOR INSTRUCTIONAL DESIGNER currently in a case, will nelson lf for possible backup or present to unit when case is complete. Datetime: 07/22/2024 12:44 Monitor Interventions for UA: IUPC Inserted Vaginal Bleeding: None Cervix, Consistency: Soft Cervix, Position: Anterior Datetime: 07/22/2024 07:35 Membrane Status: Ruptured Membranes Rupture Method: Spontaneous Amniotic Fluid Color: Clear Amniotic Fluid Amount: Moderate Amniotic Fluid Odor: Normal Datetime: 07/22/2024 07:05 Vaginal Exam Comments: Pt endorsing continuous pressure. Datetime: 07/22/2024 06:45 Oxygen Method: Room Air Datetime: 07/22/2024 05:44 Respirations: 16 Datetime: 07/22/2024 03:18 Magnesium/Antihypertensives: Ephedrine IV (mg) @ 5 Datetime: 07/22/2024 02:18 Monitor Interventions for FHR: Ultrasound Adjusted Datetime: 07/21/2024 21:06 Pain Coping: Talking Through Contractions Datetime: 07/21/2024 20:29 Pain Relief Measures: Epidural Given Epidural Procedure: Loading Dose Datetime: 07/21/2024 20:14 Epidural Positioning: Sitting Datetime: 07/21/2024 20:06 Comfort Measures: Breathing/Relaxation; Family Support PROCEDURE TIME OUT Procedure Verify: Correct Patient Identity; Correct Side and Site are Marked; Accurate Procedure Co nsent Form; Agreement on Procedure to be Done; Correct Patient Position; Relevant Images and Results are Properly Labeled and Displayed; Addressed Need to Administer Antibiotics or Fluids for Irrigation ; Safety Precautions Based on Patient History or Medication Use ANESTHESIA Anesthesia Plans: Epidural Datetime: 07/21/2024 19:39 MATERNAL ASSESSMENT Level of Consciousness: Alert DTR's/Clonus: DTRs 2+; No Clonus Headache: Denies Breath Sounds, Left: Clear and Equal Breath Sounds, Right: Clear and Equal Nausea/Vomiting: Denies RUQ Epigastric Pain: Denies Datetime: 07/21/2024 19:25 Membranes Ruptured Date/Time: 07/22/2024 07:35 Datetime: 07/21/2024 17:49 Antiemetics/Antacids: Zofran (mg) @ 4mg IVP at 1749 Datetime: 07/21/2024 17:43 Analgesics/Sedatives: Fentanyl (mcg) @ 50 mcg at 1743 Datetime: 07/21/2024 17:29 Cervical Ripening Agents: Lezama Balloon; Cytotec @
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
== END 2024-07-24 18:00 | disposition home or self-care (01) | DRG 806 ==
LOC: WFO 07:20 → FBP 07:25
PROVIDERS: ADMIT Obstetrics & Gynecology; ATTEND Obstetrics & Gynecology
DX: Z3A.41 41 weeks gestation of pregnancy; O48.0 Post-term pregnancy; O70.1 Second degree perineal laceration during delivery; D62 Acute posthemorrhagic anemia; O63.1 Prolonged second stage (of labor); Z37.0 Single live birth; O26.893 Other specified pregnancy related conditions, third trimester; N76.89 Other specified inflammation of vagina and vulva; F43.10 Post-traumatic stress disorder, unspecified; O99.893 Other specified diseases and conditions complicating puerperium; Z67.11 Type A blood, Rh negative; O99.344 Other mental disorders complicating childbirth; O72.1 Other immediate postpartum hemorrhage

== ENCOUNTER 2025-06-09 00:43 | Observation (INO) ==
[2025-06-09 01:34] LABS: HCT - HEMATOCRIT 33.3 % (37.0-47.0); HGB - HEMOGLOBIN 11.0 g/dL (12.0-16.0); MEAN PLATELET VOLUME 9.1 fL (7.9-10.8); NRBC ABSOLUTE COUNT (AUTO) 0.00 x10^3/uL; NUCLEATED RED BLOOD CELLS AUTO 0.0 /100WBC; PLT - PLATELET COUNT 237 10^3/uL (130-450); RED CELL DISTRIBUTION WIDTH 14.2 % (12.0-15.0)
[2025-06-09 01:44] LABS: INR 1.0 (0.8-1.2); PT - PROTHROMBIN TIME 11.3 secs (9.9-12.6)
--- NOTE | 2025-06-09 01:59 | PROVIDER PROGRESS NOTE ---
HPI Chief Complaint: Vaginal bleeding Current : Patient is a 25 yo A1 at 22+3 wks gestation (by LMP 01/03/2025, AMRITA 10/10/2025), brought to [facility] triage via ambulance after experiencing an episode of vaginal bleeding at home tonight. She reports she was taking a warm bath and felt some vaginal pressure. She bore down a little, thinking it was just some vaginal discharge and passed some bleeding and 2 approx 2 cm clots into the tub. She got out and called 911. While waiting for the ambulance, bleeding initially seemed to have stopped, then she had more that ran down her leg. She denies lightheadedness, dizziness, abdominal pain, cramping, ongoing pelvic pressure, leakage of fluid, change in vaginal discharge. She has not had recent vaginal intercourse or penetration. She had a limited episode of vaginal bleeding about 2-3 wks ago and was seen at [facility]. She states bleeding had stopped, and they performed labs and US then discharged her. She states they did not give her Rhogam at that visit. care has been thru [facility]. I called and spoke with PAULIE Ríos, director student union for the practice. Last note with attached limited US and lab results later obtained from L&D via fax. She is dated by LMP 01/03/25, c/w US. She is planning to move to [place] in approx 5 wks, and she will be delivering there. Spouse is [place] and now deployed on carrier stationed out of [place]. She has family support in [place]. Labs (per note): Genetic screening: low risk, male Pap 2023 nml OB Anatomy US scheduled for 06/11; 15 wk US noted placenta fundal with no evidence of previa and cervical length 4.06 cm Blood type A neg (per report from PAULIE) Problem list: Anemia - Rec'ed IV iron after last delivery - Hx anemia, on iron supplement Headaches Hx 3' laceration (delivered at [facility] by Dr. Bauer) Hx depression (associated with prior loss; on meds for a short time) Vital Signs Temperature 36.6 C 06/09/25 01:18 Pulse Rate 75 06/09/25 01:18 Respiratory Rate 16 06/09/25 01:18 Blood Pressure 115/54 L 06/09/25 01:18 Exam Exam: General: Awake and alert in no acute distress; somewhat anxious appearing due to bleeding concerns Lungs: Normal respiratory effort Heart: Reg rate/rhythm Abd: Gravid with uterine palpable at umbilicus; nontender Pelvic: Spec exam - 2 x 1 cm clot at introitus; vagina with scant light red discharge and no pooled blood; cvx with no active bleeding, friability, or masses; digital cervical exam - external os 1.5 cm, internal os approx 1 cm, med, mid, high station (of note, patient has difficulty tolerating spec exams since her miscarriage; she did not experience pain but was tearful, and we paused a few times to allow time for her to breathe and regroup) Ext: Warm and well-perfused Procedures OB Procedure Performed: NST Diagnosis/Indication for NST: Other (Vaginal bleeding) Service Date of procedure: 06/09/25 Procedure Details: NST (limited monitor performed due to early gestational age) HR baseline 140 Moderate variability Accels present, 10 x 10 No decels Rare contractions Findings: OB Limited US (bedside w/ transvaginal, performed by OB physician) Cephalic presentation; multiple movements seen; + cardiac activity GAETANO 12.8 cm Placenta fundal/left, clear of os; no obvious retroplacental lucency noted Cvx 4.7 cm with no funneling at rest or with uterine pressure Labs: CBC results as below PT/PTT/INR wnl Fibrinogen 365 Kleihauer-Betke pending Type and screen A neg with NEG antibody screen UA large blood, o/w negative Plan Plan: (1) Vaginal bleeding, second trimester - Suspect marginal sinus bleeding or possible small abruption. VS normal/stable, and bleeding seems to be decreasing with no active bleeding at time of spec exam or thereafter. Thus far, quantity of blood has been small gush of bright red into bath and passage of 2 2-cm clots at home, then streaks of blood and 2 small clots since arrival (one clot stringy, 2 cm, and second about 1 x 2 cm). Initial labs not suggestive of acute anemia or coagulopathy. Limited bedside US is essentially normal, which can still be consistent with small abruption. Cervical length is reassuring. No symptomatic contractions or pain present. Pt is RH Neg. - Admit to Observation status to monitor for ongoing bleeding. - Obtain formal US in am, once US capability resumes. - Rpt CBC, coags, and fibrinogen 6 hrs from last to trend values (will be approx 0730). - Administer Rhogam 300 mcg x 1. - Continuous toco with 10-min tracing Q3 hrs - Diet: regular - Activity: as tolerated. - VS Q3 hrs with monitoring - Maintain pads when patient uses restroom (2) at 22 wks gestation CBC Results Results HEM.RESCBC: WBC, (4.8-10.8) 9.6 x10^3/uL Today, 01:24 RBC, (4.20-5.40) 3.63 10^6/uL L Today, 01:24 Hgb, (12.0-16.0) 11.0 g/dL L Today, :24 Hct, (37.0-47.0) 33.3 % L Today, :24 MCV, (81.0-99.0) 91.7 fL Today, 01:24 MCH, (27.0-31.0) 30.3 pg Today, 01:24 MCHC, (32.0-36.0) 33.0 g/dL Today, 01:24 RDW, (12.0-15.0) 14.2 % Today, 01:24 Plt Count, (130-450) 237 10^3/uL Today, 01:24 MPV, (7.9-10.8) 9.1 fL Today, 01:24 Neut # (Auto), (1.5-6.6) 6.8 10^3/uL H Today, 01:24
[2025-06-09] MEDS: ACETAMINOPHEN 325 MG TABLET PO PRN (02:33)
[2025-06-09 03:46] LABS: GLUCOSE, URINE (UA) NEGATIVE (NEGATIVE); KETONES,URINE (UA) NEGATIVE (NEGATIVE); OCCULT BLOOD,URINE LARGE (NEGATIVE); SQUAMOUS EPITHELIAL CELL,UR FEW Squamous (<= Few)
[2025-06-09] MEDS: RHO(D) IMMUNE GLOBULIN 300 MCG SYRINGE IM ONE (04:32)
[2025-06-09 07:37] LABS: HCT - HEMATOCRIT 31.4 % (37.0-47.0); HGB - HEMOGLOBIN 10.6 g/dL (12.0-16.0); MEAN PLATELET VOLUME 9.0 fL (7.9-10.8); NRBC ABSOLUTE COUNT (AUTO) 0.00 x10^3/uL; NUCLEATED RED BLOOD CELLS AUTO 0.0 /100WBC; PLT - PLATELET COUNT 208 10^3/uL (130-450); RED CELL DISTRIBUTION WIDTH 14.2 % (12.0-15.0)
[2025-06-09 08:07] LABS: INR 1.0 (0.8-1.2); PT - PROTHROMBIN TIME 11.7 secs (9.9-12.6)
--- NOTE | 2025-06-09 09:20 | PROVIDER PROGRESS NOTE ---
Assessment/Plan Problem List (1) Vaginal bleeding in patient after first trimester: Assessment/Plan: No signs of abruption, bleeding resolved. Good status. No additional bleeding. KB test, vaginal swabs pending. 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 Consider MFM referral if bleeding happens again. Low indication for pelvic rest, but not harmful and may provide peace of mind. Should represent if bleeding happens. Discharged in stable condition. Current Meds Current Meds: Current Medications Generic Name Dose Route Start Last Admin Trade Name Freq PRN Reason Stop Dose Admin Acetaminophen 650 mg 06/09/25 02:13 06/09/25 02:33 Acetaminophen 325 Mg Tablet PO 650 mg Q4HR PRN Administration Pain or Fever > 38C (100.4F) Lab Result 06/09/25 07:28 Diagnostic Imaging Results Diagnostic Imaging Results: Final report reviewed and Read independently Subjective Subjective Comments/Notes: No bleeding for the last few hours. Patient feeling very comfortable. No contractions. Feeling more comfortable going home. Good movement. No contractions picked up on monitoring. Objective Vital Signs: Vital Signs - 24 hr 06/09/25 01:18 06/09/25 01:55 06/09/25 02:33 Temperature 36.6 C Temperature Source Pulse Rate 75 Pulse Rate [Monitoring electrodes] Respiratory Rate 16 Blood Pressure 115/54 L Blood Pressure [Right Brachial artery Manual] O2 Saturation Pain Intensity 3 Pain Intensity [Generalized] 0 06/09/25 03:30 06/09/25 04:15 06/09/25 06:00 Temperature 36.8 C 36.8 C Temperature Source Oral Oral Pulse Rate Pulse Rate [Monitoring electrodes] 77 86 Respiratory Rate 16 16 Blood Pressure Blood Pressure [Right Brachial artery Manual] 107/50 L 87/45 L O2 Saturation 98 98 Pain Intensity 1 Pain Intensity [Generalized] 06/09/25 07:44 Temperature Temperature Source Pulse Rate Pulse Rate [Monitoring electrodes] Respiratory Rate Blood Pressure Blood Pressure [Right Brachial artery Manual] O2 Saturation Pain Intensity Pain Intensity [Generalized] 0 Oxygen O2 Source Room air Constitutional: alert, no acute distress, well hydrated, well developed, well nourished, appropriate dress. Respiratory: no respiratory distress. Abdomen: nondistended, nontender, no guarding. Psych: affect and mood appropriate, normal interaction, good eye contact. [place]: Quiescent Results Results: Laboratory Results WBC 8.3 x10^3/uL (4.8-10.8) 06/09/25 07: RBC 3.41 10^6/uL (4.20-5.40) L 06/09/25 07: Hgb 10.6 g/dL (12.0-16.0) L 06/09/25 07: Hct 31.4 % (37.0-47.0) L 06/09/25 07: MCV 92.1 fL (81.0-99.0) 06/09/25 07: MCH 31.1 pg (27.0-31.0) H 06/09/25 07: MCHC 33.8 g/dL (32.0-36.0) 06/09/25 07: RDW 14.2 % (12.0-15.0) 06/09/25 07: Plt Count 208 10^3/uL (130-450) 06/09/25 07: MPV 9.0 fL (7.9-10.8) 06/09/25 07: Neut # (Auto) 5.7 10^3/uL (1.5-6.6) 06/09/25 07: Lymph # (Auto) 2.2 10^3/uL (1.5-3.5) 06/09/25 07:28 [place] # (Auto) 0.4 10^3/uL (0.0-1.0) 06/09/25 07: Eos # (Auto) 0.1 10^3/uL (0.0-0.7) 06/09/25 07: Baso # (Auto) 0.0 10^3/uL (0.0-0.1) 06/09/25 07: Absolute Nucleated RBC 0.00 x10^3/uL 06/09/25 07: Nucleated RBC % 0.0 /100WBC 06/09/25 07: PT 11.7 secs (9.9-12.6) 06/09/25 07:28 INR 1.0 (0.8-1.2) 06/09/25 07: APTT 23.7 secs (24.9-33.3) L 06/09/25 07: Fibrinogen 376 mg/dL (220-496) 11/10/25 07:28 Urine Color YELLOW 06/09/25 01:45 Urine Clarity HAZY (CLEAR) 06/09/25 01:45 Urine pH 6.5 PH (5.0-7.5) 06/09/25 01:45 Ur Specific [place] 1.010 (1.002-1.030) 06/09/25 01:45 Urine Protein NEGATIVE mg/dL (NEGATIVE) 06/09/25 01:45 Urine Glucose (UA) NEGATIVE mg/dL (NEGATIVE) 06/09/25 01:45 Urine Ketones NEGATIVE mg/dL (NEGATIVE) 06/09/25 01:45 Urine Occult Blood LARGE (NEGATIVE) 06/09/25 01:45 Urine Nitrite NEGATIVE (NEGATIVE) 06/09/25 01:45 Urine Bilirubin NEGATIVE (NEGATIVE) 06/09/25 01:45 Urine Urobilinogen 0.2 (NORMAL) E.U./dL (NORMAL) 06/09/25 01:45 Ur Leukocyte Esterase NEGATIVE (NEGATIVE) 06/09/25 01:45 Urine RBC 11-25 /HPF (0-5) H 06/09/25 01:45 Urine WBC 0-3 /HPF (0-5) 06/09/25 01:45 Ur Squamous Epith Cells FEW Squamous (<= Few) 06/09/25 01:45 Urine Bacteria Few /HPF (None Seen) 06/09/25 01:45 Blood Type A NEGATIVE 06/09/25 01:24 Blood Type A NEGATIVE 06/09/25 01:24 Antibody Screen NEGATIVE 06/09/25 01:24 Antibody Screen NEGATIVE 06/09/25 01:24 Procedures Procedures: Procedures Delivery of Products of Conception, External Approach (07/21/24) Dilation of Cervix, Via Natural or Artificial Opening (07/21/24) Introduction of Hormone into Female Reproductive, Via Natural or Artificial Opening (07/21/24) Repair Perineum Muscle, Open Approach (07/21/24) Current Medications Current Medications Current Medications: Current Medications Generic Name Dose Route Start Last Admin Trade Name Freq PRN Reason Stop Dose Admin Acetaminophen 650 mg 06/09/25 02:13 06/09/25 02:33 Acetaminophen 325 Mg Tablet PO 650 mg Q4HR PRN Administration Pain or Fever > 38C (100.4F)
--- NOTE | 2025-06-09 09:20 | Ultrasound Report ---
PROCEDURE: US OB Follow up INDICATIONS: vaginal bleeding, r/o placental abruption OUTSIDE/PRIOR DATING DATA: Working AMRITA: 10/05/2025 TECHNIQUE: Real-time scanning was performed of the fetus, with image documentation and biometric measurements. Endovaginal scanning: Not performed. COMPARISON: None. FINDINGS: General: A single living intrauterine gestation is present. Presentation: Breech Placenta: Placental position is fundal, without previa. No evidence of placental abruption. Amniotic fluid index: 16.0 cm, within normal limits for gestational age. heart rate: 136 beats per minute. Maternal cervical canal: 3.3 cm long; normal length is 2.5 cm or more. biometrics: Biparietal diameter: 5.5 cm, 22 weeks 5 days, 33rd percentile Head circumference: 20.3 cm, 22 weeks 3 days, 16 percentile Abdominal circumference: 18.4 cm, 23 weeks 2 days, 49th percentile Femur length: 4.0 cm, 22 weeks 5 days, 30th percentile Estimated gestational age from initial scan: 23 weeks 0 days Composite gestational age from present scan: 22 weeks 6 days Estimated weight and percentile: 549 g, 40th percentile Measurement variability in biometric dating: +/- 10 days from 12-20 weeks gestation, +/- 2 weeks from 20-30 weeks gestation, +/- 3 weeks at 30 weeks gestation or more. Other: Not applicable. IMPRESSION: Living second-trimester intrauterine with no sonographic evidence of complications. No evidence of placental abruption. Ultrasound age correlates with established clinical age. Reviewed by: Zen Shi MD on 06/09/2025 9:16 AM PST Approved by: Zen Shi MD on 06/09/2025 9:16 AM PST Station ID: [id number]
[2025-06-09 10:23] VITALS: BP 108/62; TEMP 98.1; O2SAT 96
[2025-06-09 13:30] LABS: CHLAMYDIA TRACHOMATIS DNA NEGATIVE (NEGATIVE); NEISSERIA GONORRHOEAE DNA NEGATIVE (NEGATIVE)
[2025-06-09 13:32] LABS: BACTERIAL VAGINOSIS DNA NEGATIVE (NEGATIVE); CANDIDA GLABRATA DNA NEGATIVE (NEGATIVE); CANDIDA GROUP DNA NEGATIVE (NEGATIVE); CANDIDA KRUSEI DNA NEGATIVE (NEGATIVE); TRICHOMONAS VAGINALIS DNA NEGATIVE (NEGATIVE)
== END 2025-06-09 10:00 | disposition home or self-care (01) ==
LOC: FBP 00:43 → WFO 00:43
PROVIDERS: ADMIT Obstetrics & Gynecology; ATTEND Obstetrics & Gynecology
DX: O46.92 Antepartum hemorrhage, unspecified, second trimester; Z3A.22 22 weeks gestation of pregnancy